=== PATIENT | female | born 2000 | race Two or more races ===

== ENCOUNTER 2020-08-22 17:02 | Emergency (ER) | payer OTHER ==
[2020-08-22 17:39] LABS: BASOPHILS % (AUTO) 0.4 %; EOSINOPHILS % (AUTO) 0.3 %; HCT - HEMATOCRIT 37.2 % (37.0-47.0); HGB - HEMOGLOBIN 12.2 g/dL (12.0-16.0); LYMPHOCYTES # (AUTO) 3.2 10^3/uL (1.5-3.5); LYMPHOCYTES % (AUTO) 31.1 %; MEAN CORPUSCULAR HEMOGLOBIN 30.7 pg (27.0-31.0); MEAN CORPUSCULAR HGB CONC 32.8 g/dL (32.0-36.0); MEAN CORPUSCULAR VOLUME 93.5 fL (81.0-99.0); MEAN PLATELET VOLUME 11.1 fL (7.9-10.8); MONOCYTES # (AUTO) 0.6 10^3/uL (0.0-1.0); MONOCYTES % (AUTO) 5.9 %; NEUTROPHILS # (AUTO) 6.3 10^3/uL (1.5-6.6); PLT - PLATELET COUNT 277 10^3/uL (130-450); RED BLOOD COUNT 3.98 10^6/uL (4.20-5.40); RED CELL DISTRIBUTION WIDTH 12.6 % (12.0-15.0); WHITE BLOOD COUNT 10.2 x10^3/uL (4.8-10.8)
[2020-08-22 17:51] LABS: ALBUMIN 4.9 g/dL (3.2-5.5); ALBUMIN/GLOBULIN RATIO 1.6 (1.0-2.2); BILIRUBIN,TOTAL 1.1 mg/dL (0.2-1.0); CALCIUM 9.6 mg/dL (8.5-10.3); CREATININE 0.8 mg/dL (0.4-1.0)
[2020-08-22 19:41] LABS: BILIRUBIN,URINE NEGATIVE (NEGATIVE); GLUCOSE, URINE (UA) NEGATIVE (NEGATIVE); KETONES,URINE (UA) NEGATIVE (NEGATIVE); LEUKOCYTE ESTERASE, URINE NEGATIVE (NEGATIVE); NITRITE,URINE NEGATIVE (NEGATIVE); OCCULT BLOOD,URINE NEGATIVE (NEGATIVE); PH,URINE 6.5 PH (5.0-7.5); PROTEIN,URINE NEGATIVE (NEGATIVE); UROBILINOGEN,URINE 0.2 (NORMAL) E.U./dL (NORMAL)
--- NOTE | 2020-08-22 19:42 | ED Physician Documentation ---
History of Present Illness - Stated complaint Stated Complaint: LOW ABD PX - Chief complaint Chief Complaint: Abd Pain - History obtained from History obtained from: Patient - Additonal information Additional information: Patient comes emergency department chief complaint of low abdominal cramping for the last week. She states that she thought she was going to start her period but that her period never started. Patient states that when she takes ibuprofen, the symptoms are relieved but when the ibuprofen wears off, they come back. Patient denies any other accompanying symptoms other than some nausea this morning. She states she vomited once. No dysuria. No fevers or chills. No back pain. No change in bowel habits. No blood in urine. No surgical history. Patient is quite sure she is not . No other complaints at this time Review of Systems Ten Systems: 10 systems reviewed and negative Constitutional: reports: Reviewed and negative Eyes: reports: Reviewed and negative Ears: reports: Reviewed and negative Nose: reports: Reviewed and negative Throat: reports: Reviewed and negative Cardiac: reports: Reviewed and negative Respiratory: reports: Reviewed and negative GI: reports: Abdominal Pain, Nausea, Vomiting : reports: Reviewed and negative Skin: reports: Reviewed and negative Musculoskeletal: reports: Reviewed and negative Neurologic: reports: Reviewed and negative Psychiatric: reports: Reviewed and negative Endocrine: reports: Reviewed and negative Immunocompromised: reports: Reviewed and negative PD PAST MEDICAL HISTORY - Allergies Allergies/Adverse Reactions: Allergies Allergy/AdvReac Type Severity Reaction Status Date / Time No Known Drug Allergies Allergy Verified 08/22/20 17:13 - Social History Does the pt smoke?: No Smoking Status: Never smoker PD ED PE NORMAL - Vitals Vital signs reviewed: Yes - General General: Alert and oriented X 3, No acute distress, Well developed/nourished - HEENT HEENT: Atraumatic, PERRL, EOMI, Moist mucous membranes - Neck Neck: Supple, no meningeal sign - Cardiac Cardiac: RRR, No murmur - Respiratory Respiratory: No respiratory distress, Clear bilaterally - Abdomen Abdomen: Soft, Non distended, Other (Mild suprapubic tenderness, no rebound or guarding.) - Back Back: No CVA TTP - Derm Derm: Normal color, Warm and dry, No rash - Extremities Extremities: No deformity, No edema, No calf tenderness / cord - Neuro Neuro: Alert and oriented X 3, lead manufacturing technician 2-12 intact, Normal speech, Other (The normal) - Psych Psych: Normal mood, Normal affect Results - Vitals Vitals: Vital Signs - 24 hr 08/22/20 08/22/20 08/22/20 17:13 19:17 21:00 Temperature 36.5 C Heart Rate 77 56 L 55 L Respiratory 16 18 19 Rate Blood Pressure 119/69 116/76 118/75 O2 Saturation 99 100 99 08/22/20 22:32 Temperature 36.6 C Heart Rate 56 L Respiratory 14 Rate Blood Pressure 104/67 O2 Saturation 100 Oxygen O2 Source Room air - Labs Labs: Laboratory Tests 08/22/20 08/22/20 08/22/20 17:28 17:31 17:31 WBC 10.2 RBC 3.98 L Hgb 12.2 Hct 37.2 MCV 93.5 MCH 30.7 MCHC 32.8 RDW 12.6 Plt Count 277 MPV 11.1 H Neut # (Auto) 6.3 Lymph # (Auto) 3.2 [place] # (Auto) 0.6 Eos # (Auto) 0.0 Baso # (Auto) 0.0 Absolute Nucleated RBC 0.00 Nucleated RBC % 0.0 Sodium 135 Potassium 4.0 Chloride 102 Carbon Dioxide 25 Anion Gap 8.0 BUN 17 Creatinine 0.8 Estimated GFR (MDRD) 91 Glucose 98 Calcium 9.6 Total Bilirubin 1.1 H AST 20 ALT 18 Alkaline Phosphatase 70 Total Protein 8.0 Albumin 4.9 Globulin 3.1 Albumin/Globulin Ratio 1.6 Lipase 30 Urine Color YELLOW Urine Clarity CLEAR Urine pH 6.5 Ur Specific [place] 1.020 Urine Protein NEGATIVE Urine Glucose (UA) NEGATIVE Urine Ketones NEGATIVE Urine Occult Blood NEGATIVE Urine Nitrite NEGATIVE Urine Bilirubin NEGATIVE Urine Urobilinogen 0.2 (NORMAL) Ur Leukocyte Esterase NEGATIVE Ur Microscopic Review NOT INDICATED Urine Culture Comments NOT INDICATED Urine HCG, Qual NEGATIVE - Rads (name of study) CT AP Radiology: Final report received, EMP read indepedently (neg) PD MEDICAL DECISION MAKING - ED course Complexity details: reviewed results, re-evaluated patient, considered differential, d/w patient ED course: The patient was worked up with labs, urinalysis, and urine test. She was treated symptomatically with a dose of ibuprofen. All work-up, including CT abdomen and pelvis was negative. I discussed the usual indications for return and follow-up. Departure - Departure Disposition: 01 Home, Self Care Clinical Impression: Abdominal pain Qualifiers: Abdominal location: lower abdomen, unspecified Qualified Code(s): R10.30 - Lower abdominal pain, unspecified Condition: Stable Instructions: ED Abdominal Pain Unkn Cause Comments: All of your tests look good. There is no evidence of an emergent condition causing your pain. Please take ibuprofen as needed. Follow-up with your primary doctor if you are not feeling better in 1 week. Discharge Date/Time: 08/22/20 22:33
[2020-08-22 19:43] LABS: CLARITY,URINE CLEAR (CLEAR); HCG UR QUAL NEGATIVE
[2020-08-22] MEDS: IBUPROFEN 800 MG TABLET PO STA (19:45)
[2020-08-22] MEDS ORDERED: IOVERSOL 320 100 ML VIAL IVP ONE (20:44)
[2020-08-22] MEDS: IOVERSOL 320 100 ML VIAL IVP ONE (21:01)
--- NOTE | 2020-08-22 21:56 | CT Report ---
PROCEDURE: Abdomen/Pelvis W INDICATIONS: low abd pain/vomiting x 1 week CONTRAST: IV CONTRAST: Optiray 320 ml: 100 PO CONTRAST: *NO PO CONTRAST TECHNIQUE: After the administration of weight appropriate dose of intravenous contrast, 5 mm thick sections acqu ired from the diaphragms to the symphysis. 5 mm thick coronal and sagittal reformats were acquired. For radiation dose reduction, the following was used: automated exposure control, adjustment of mA and/or kV according to patient size. COMPARISON: None. FINDINGS: Image quality: Excellent. ABDOMEN: Lung bases: Lung bases are clear. Heart size is normal. Solid organs: Liver and spleen are normal in size and enhancement. Gallbladder is unremarkable Brayan iary system is non dilated. Pancreas enhances normally. No adrenal nodules. Kidneys demonstrate no rmal size and enhancement, without hydronephrosis. Peritoneum and bowel: Bowel loops demonstrate normal wall thickness and caliber. No free fluid or a ir. Normal appendix. Nodes and vessels: No retroperitoneal or mesenteric adenopathy by size criteria. Aorta and inferior vena cava are normal in size. Miscellaneous: No ventral hernias. PELVIS: Genitourinary: Bladder wall thickness is normal. Miscellaneous: No inguinal hernias or adenopathy. Bones: No suspicious bony lesions. No acute vertebral body compression fractures. IMPRESSION: CT abdomen and pelvis without acute abnormalities. No evidence for bowel obstruction. No acute inflammatory changes. Normal appendix. Reviewed by: Perez Albarran MD on 08/22/2020 9:54 PM PDT Approved by: Perez Albarran MD on 08/22/2020 9:54 PM PDT Station ID: [id number]
[2020-08-22 22:34] VITALS: BP 104/67
== END 2020-08-22 22:33 | disposition home or self-care (01) ==
LOC: ED 17:02
DX: R10.30 Lower abdominal pain, unspecified (principal); R11.2 Nausea with vomiting, unspecified
CPT/HCPCS: 36415; 74177; 80053; 81003; 81025; 83690; 85025; 99282; 99284; A9270; Q9967; 81001; 87086

== ENCOUNTER 2021-12-19 07:32 | Emergency (ER) | payer OTHER ==
[2021-12-19] MEDS ORDERED: ONDANSETRON ODT 4 MG TABLET TL STA (07:44)
[2021-12-19 08:12] LABS: BASOPHILS % (AUTO) 0.5 %; EOSINOPHILS # (AUTO) 0.2 10^3/uL (0.0-0.7); EOSINOPHILS % (AUTO) 2.4 %; HCT - HEMATOCRIT 37.3 % (37.0-47.0); LYMPHOCYTES % (AUTO) 46.5 %; MEAN CORPUSCULAR HGB CONC 32.2 g/dL (32.0-36.0); MEAN CORPUSCULAR VOLUME 90.1 fL (81.0-99.0); MEAN PLATELET VOLUME 10.8 fL (7.9-10.8); MONOCYTES # (AUTO) 0.5 10^3/uL (0.0-1.0); MONOCYTES % (AUTO) 7.2 %; NEUTROPHILS # (AUTO) 2.8 10^3/uL (1.5-6.6); NEUTROPHILS % (AUTO) 43.2 %; PLT - PLATELET COUNT 289 10^3/uL (130-450); RED BLOOD COUNT 4.14 10^6/uL (4.20-5.40); RED CELL DISTRIBUTION WIDTH 13.7 % (12.0-15.0); WHITE BLOOD COUNT 6.4 x10^3/uL (4.8-10.8)
[2021-12-19 08:14] LABS: BILIRUBIN,URINE NEGATIVE (NEGATIVE); CLARITY,URINE CLEAR (CLEAR); GLUCOSE, URINE (UA) NEGATIVE (NEGATIVE); KETONES,URINE (UA) NEGATIVE (NEGATIVE); LEUKOCYTE ESTERASE, URINE NEGATIVE (NEGATIVE); NITRITE,URINE NEGATIVE (NEGATIVE); OCCULT BLOOD,URINE NEGATIVE (NEGATIVE); PROTEIN,URINE NEGATIVE (NEGATIVE); UROBILINOGEN,URINE 0.2 (NORMAL) E.U./dL (NORMAL)
[2021-12-19 08:15] LABS: HCG UR QUAL NEGATIVE
[2021-12-19 08:37] LABS: ALBUMIN 4.6 g/dL (3.2-5.5); ALBUMIN/GLOBULIN RATIO 1.4 (1.0-2.2); CALCIUM 9.3 mg/dL (8.5-10.3); CREATININE 0.6 mg/dL (0.4-1.0); POTASSIUM 4.1 mmol/L (3.5-5.0); TOTAL PROTEIN 7.9 g/dL (6.7-8.2)
[2021-12-19] MEDS ORDERED: iohexoL-300 100 ML VIAL ONE (09:58)
--- NOTE | 2021-12-19 12:15 | CT Report ---
PROCEDURE: ABDOMEN/PELVIS W INDICATIONS: periumbilical pain/nausea CONTRAST: 100ml Omnipaque 300 TECHNIQUE: After the administration of IV contrast, 5 mm thick sections acquired from the diaphragms to the symp hysis. 5 mm thick coronal and sagittal reformats were acquired. For radiation dose reduction, the f ollowing was used: automated exposure control, adjustment of mA and/or kV according to patient size. COMPARISON: 08/22/2020 FINDINGS: Image quality: Excellent. ABDOMEN: Lung bases: Lung bases are clear. Heart size is normal. Solid organs: Liver and spleen are normal in size and enhancement. Gallbladder is within normal foote its. Biliary system is non dilated. Pancreas enhances normally. No adrenal nodules. Kidneys demon strate normal size and enhancement, without hydronephrosis. Peritoneum and bowel: There is no bowel obstruction. Appendix is visualized in right lower quadrant a nd is within normal limits. Mild wall thickening and hyperemia involving multiple small bowel loops i n mid to right side of abdomen with mild fluid distention suggestive of low-grade enteritis. No absce ss collection. No colonic wall thickening. No free fluid or free air. Nodes and vessels: No retroperitoneal or mesenteric adenopathy by size criteria. Aorta and inferior vena cava are normal in size. Miscellaneous: No ventral hernias. PELVIS: Genitourinary: Bladder wall thickness is normal. Miscellaneous: No inguinal hernias or adenopathy. Bones: No suspicious bony lesions. No vertebral body compression fractures. IMPRESSION: 1. A few mildly thickened small bowel loops with fluid distention seen in mid to right side of abdome n suggestive of mild enteritis. 2. Normal appendix. No bowel obstruction or other area of abnormal bowel wall thickening. No free flu id or free air. Reviewed by: Stefano Wolf MD on 12/19/2021 12:14 PM PST Approved by: Stefano Wolf MD on 12/19/2021 12:14 PM PST Station ID: [id number]
--- NOTE | 2021-12-19 12:34 | ED Physician Documentation ---
PD HPI ABD PAIN - Stated complaint Stated Complaint: LOW ABD PX - Chief complaint Chief Complaint: Abd Pain - History obtained from History obtained from: Patient - Additional information Additional information: Patient is a 21-year-old female with no significant past medical history presenting for evaluation of periumbilical abdominal pain that is been present for 1 week with nausea. The pain does not radiate. Nothing makes it better or worse. She denies emesis or diarrhea. No fevers chills, body aches, chest pain or difficulty breathing. Denies concerns for . Denies pelvic pain, vaginal bleeding or discharge. Review of Systems Constitutional: denies: Fever Nose: denies: Congestion Cardiac: denies: Chest pain / pressure Respiratory: denies: Dyspnea GI: reports: Abdominal Pain, Nausea. denies: Vomiting : denies: Dysuria Musculoskeletal: denies: Back pain Neurologic: denies: Headache PD PAST MEDICAL HISTORY - Present Medications Home Medications: Ambulatory Orders Medication Instructions Recorded Confirmed Ondansetron Odt [Zofran] 4 mg TL Q6H PRN #10 tablet 12/19/21 - Allergies Allergies/Adverse Reactions: Allergies Allergy/AdvReac Type Severity Reaction Status Date / Time No Known Drug Allergies Allergy Verified 08/22/20 17:13 - Social History Does the pt smoke?: No Smoking Status: Never smoker PD ED PE NORMAL - General General: Alert and oriented X 3, No acute distress, Well developed/nourished - HEENT HEENT: Atraumatic, Moist mucous membranes - Neck Neck: Supple, no meningeal sign - Cardiac Cardiac: RRR, Strong equal pulses - Respiratory Respiratory: No respiratory distress, Clear bilaterally - Abdomen Abdomen: Normal bowel sounds, Soft, Non distended, Other (Periumbilical tendern ess, no lower abdominal tenderness to palpation, no rebound, no guarding) - Derm Derm: Warm and dry - Extremities Extremities: No edema - Neuro Neuro: Normal speech Results - Vitals Vitals: Vital Signs - 24 hr 12/19/21 12/19/21 12/19/21 07:43 11:24 12:47 Temperature 37.0 C 36.7 C Heart Rate 67 50 L 68 Respiratory 19 18 14 Rate Blood Pressure 123/64 104/57 L 98/61 O2 Saturation 100 98 100 Oxygen O2 Source Room air - Labs Labs: Laboratory Tests 12/19/21 12/19/21 12/19/21 08:00 08:08 08:08 WBC 6.4 RBC 4.14 L Hgb 12.0 Hct 37.3 MCV 90.1 MCH 29.0 MCHC 32.2 RDW 13.7 Plt Count 289 MPV 10.8 Neut # (Auto) 2.8 Lymph # (Auto) 3.0 [place] # (Auto) 0.5 Eos # (Auto) 0.2 Baso # (Auto) 0.0 Absolute Nucleated RBC 0.00 Nucleated RBC % 0.0 Sodium 137 Potassium 4.1 Chloride 103 Carbon Dioxide 27 Anion Gap 7.0 BUN 9 Creatinine 0.6 Estimated GFR (MDRD) 125 Glucose 88 Calcium 9.3 Total Bilirubin 1.0 AST 23 ALT 21 Alkaline Phosphatase 58 Total Protein 7.9 Albumin 4.6 Globulin 3.3 Albumin/Globulin Ratio 1.4 Lipase 39 Urine Color YELLOW Urine Clarity CLEAR Urine pH 7.0 Ur Specific [place] 1.015 Urine Protein NEGATIVE Urine Glucose (UA) NEGATIVE Urine Ketones NEGATIVE Urine Occult Blood NEGATIVE Urine Nitrite NEGATIVE Urine Bilirubin NEGATIVE Urine Urobilinogen 0.2 (NORMAL) Ur Leukocyte Esterase NEGATIVE Ur Microscopic Review NOT INDICATED Urine Culture Comments NOT INDICATED Urine HCG, Qual NEGATIVE PD MEDICAL DECISION MAKING - ED course Complexity details: reviewed results, re-evaluated patient ED course: Patient presenting for evaluation of 1 week of periumbilical abdominal pain. Vital signs are stable and labs are reassuring. No lower abdominal tenderness. CT scan with possible enteritis. Reviewed results with patient. She is well- hydrated. Discussed continuing supportive care as Well as concerning symptoms to return for. Departure - Departure Disposition: 01 Home, Self Care Clinical Impression: Abdominal pain Condition: Stable Instructions: ED Abdominal Pain Female Non-Specific Abdominal Pain Prescriptions: Ondansetron Odt [Zofran] 4 mg TL Q6H PRN #10 tablet PRN Reason: Nausea / Vomiting Comments: You were evaluated for abdominal pain. Your labs were normal. Your CT scan shows a mild amount of inflammation. I would start with a clear liquid diet and advance as tolerated today. I would continue with acetaminophen or ibuprofen as needed for pain. If you have any worsening symptoms please return to the ER. I have sent a prescription for nausea medications to [facility] in [place]. Forms: Activity restrictions Discharge Date/Time: 12/19/21 12:49
[2021-12-19 12:47] VITALS: BP 98/61
[2021-12-19] MEDS ORDERED: iohexoL-300 100 ML VIAL IVP ONE (18:17)
== END 2021-12-19 12:49 | disposition home or self-care (01) ==
LOC: ED 07:32
DX: R10.33 Periumbilical pain (principal); R11.0 Nausea
CPT/HCPCS: 36415; 74177; 80053; 81003; 81025; 83690; 85025; 99282; 99284; Q0162; Q9967; 81001; 87086

== ENCOUNTER 2022-04-01 20:21 | Emergency (ER) | payer OTHER ==
[2022-04-01 20:48] LABS: BILIRUBIN,URINE NEGATIVE (NEGATIVE); GLUCOSE, URINE (UA) NEGATIVE (NEGATIVE); KETONES,URINE (UA) TRACE mg/dL (NEGATIVE); LEUKOCYTE ESTERASE, URINE NEGATIVE (NEGATIVE); NITRITE,URINE NEGATIVE (NEGATIVE); OCCULT BLOOD,URINE TRACE-INTA (NEGATIVE); PROTEIN,URINE NEGATIVE (NEGATIVE); UROBILINOGEN,URINE 0.2 (NORMAL) E.U./dL (NORMAL)
[2022-04-01 20:58] LABS: CLARITY,URINE CLEAR (CLEAR)
[2022-04-01 20:59] LABS: BASOPHILS % (AUTO) 0.3 %; EOSINOPHILS % (AUTO) 0.1 %; HCT - HEMATOCRIT 36.8 % (37.0-47.0); HGB - HEMOGLOBIN 11.9 g/dL (12.0-16.0); LYMPHOCYTES # (AUTO) 1.2 10^3/uL (1.5-3.5); LYMPHOCYTES % (AUTO) 16.4 %; MEAN CORPUSCULAR HEMOGLOBIN 28.7 pg (27.0-31.0); MEAN CORPUSCULAR HGB CONC 32.3 g/dL (32.0-36.0); MEAN CORPUSCULAR VOLUME 88.7 fL (81.0-99.0); MEAN PLATELET VOLUME 10.3 fL (7.9-10.8); MONOCYTES # (AUTO) 0.4 10^3/uL (0.0-1.0); MONOCYTES % (AUTO) 5.5 %; NEUTROPHILS # (AUTO) 5.8 10^3/uL (1.5-6.6); NEUTROPHILS % (AUTO) 77.4 %; PLT - PLATELET COUNT 289 10^3/uL (130-450); RED BLOOD COUNT 4.15 10^6/uL (4.20-5.40); RED CELL DISTRIBUTION WIDTH 13.7 % (12.0-15.0); WHITE BLOOD COUNT 7.5 x10^3/uL (4.8-10.8)
[2022-04-01 21:06] LABS: ALBUMIN/GLOBULIN RATIO 1.1 (1.0-2.2); BILIRUBIN,TOTAL 1.1 mg/dL (0.2-1.0); CALCIUM 8.6 mg/dL (8.5-10.3); CREATININE 0.5 mg/dL (0.4-1.0); POTASSIUM 3.4 mmol/L (3.5-5.0); TOTAL PROTEIN 7.7 g/dL (6.7-8.2)
--- NOTE | 2022-04-01 21:31 | ED Physician Documentation ---
PD HPI NVD - Stated complaint Stated Complaint: N/V - Chief complaint Chief Complaint: Abd Pain - History obtained from History obtained from: Patient - History of Present Illness Timing - details: Gradual onset Recently seen: Clinic - Additonal information Additional information: patient c/o nausea, vomiting, fatigue since last night. intermittent/episodic dizziness. LMP was 02/14/22 and [place] test that resulted positive. Although her chief complaint is n/v, fatigue/weakness, she also notes (on ROS) suprapubic cramping, intermittent, for approximately the past week. Denies vaginal bleeding. This is her first . She has not yet had an US in this . Review of Systems Constitutional: denies: Fever GI: reports: Nausea, Vomiting. denies: Abdominal Pain (suprapubic cramping, but no abdominal pain per se), Constipation, Diarrhea : reports: Now EGA. denies: Dysuria PD PAST MEDICAL HISTORY - Past Medical History Past Medical History: No - Present Medications Home Medications: Ambulatory Orders Medication Instructions Recorded Confirmed Metoclopramide [Reglan] 10 mg PO Q6H PRN #14 tablet 04/02/22 - Allergies Allergies/Adverse Reactions: Allergies Allergy/AdvReac Type Severity Reaction Status Date / Time aspirin Allergy Hives Verified 04/01/22 20:27 - Social History Does the pt smoke?: No Smoking Status: Never smoker PD ED PE NORMAL - Vitals Vital signs reviewed: Yes - General General: Alert and oriented X 3, No acute distress, Well developed/nourished - HEENT HEENT: Pharynx benign, Other (tacky/pasty mucous membranes) - Neck Neck: Supple, no meningeal sign - Cardiac Cardiac: RRR, No murmur - Respiratory Respiratory: No respiratory distress, Clear bilaterally - Abdomen Abdomen: Normal bowel sounds, Soft, Non tender, Non distended - Back Back: No CVA TTP Results - Vitals Vitals: Oxygen O2 Source Room air - Labs Labs: Laboratory Tests 04/01/22 04/01/22 04/01/22 20:43 20:49 20:49 WBC 7.5 RBC 4.15 L Hgb 11.9 L Hct 36.8 L MCV 88.7 MCH 28.7 MCHC 32.3 RDW 13.7 Plt Count 289 MPV 10.3 Neut # (Auto) 5.8 Lymph # (Auto) 1.2 L [place] # (Auto) 0.4 Eos # (Auto) 0.0 Baso # (Auto) 0.0 Absolute Nucleated RBC 0.00 Nucleated RBC % 0.0 Sodium 131 L Potassium 3.4 L Chloride 98 L Carbon Dioxide 19 L Anion Gap 14.0 H BUN 6 Creatinine 0.5 Estimated GFR (MDRD) 153 Glucose 107 H Calcium 8.6 Total Bilirubin 1.1 H AST 23 ALT 31 Alkaline Phosphatase 56 Total Protein 7.7 Albumin 4.0 Globulin 3.7 Albumin/Globulin Ratio 1.1 Lipase 33 HCG, Quant Urine Color YELLOW Urine Clarity CLEAR Urine pH 7.0 Ur Specific [place] 1.015 Urine Protein NEGATIVE Urine Glucose (UA) NEGATIVE Urine Ketones TRACE Urine Occult Blood TRACE-INTA Urine Nitrite NEGATIVE Urine Bilirubin NEGATIVE Urine Urobilinogen 0.2 (NORMAL) Ur Leukocyte Esterase NEGATIVE Ur Microscopic Review NOT INDICATED Urine Culture Comments NOT INDICATED 04/01/22 20:49 WBC RBC Hgb Hct MCV MCH MCHC RDW Plt Count MPV Neut # (Auto) Lymph # (Auto) [place] # (Auto) Eos # (Auto) Baso # (Auto) Absolute Nucleated RBC Nucleated RBC % Sodium Potassium Chloride Carbon Dioxide Anion Gap BUN Creatinine Estimated GFR (MDRD) Glucose Calcium Total Bilirubin AST ALT Alkaline Phosphatase Total Protein Albumin Globulin Albumin/Globulin Ratio Lipase HCG, Quant 47909.00 Urine Color Urine Clarity Urine pH Ur Specific [place] Urine Protein Urine Glucose (UA) Urine Ketones Urine Occult Blood Urine Nitrite Urine Bilirubin Urine Urobilinogen Ur Leukocyte Esterase Ur Microscopic Review Urine Culture Comments - Rads (name of study) first trimester US Radiology: Prelim report reviewed, See rad report PD Medical Decision Making - ED course Complexity details: reviewed results, re-evaluated patient, considered differe ntial, d/w patient ED course: Mild abnormalities on blood tests without any concerning results (mild hyponatremia, Na 131; minimal hypokalemia, K 3.4). Serum HCG is over 32k. First trimester US shows IUP with gestational sac and yolk sac but no definite cardiac activity. Also small subchorionic bleeding on information systems director's interpretation. Patient is given 1 liter NS IV bolus and 4mg IV zofran and on reevaluation, she appears to be in NAD, reports feeling significant improvement, and has moist mucous membranes. I discussed results with patient. Further testing is not indicated on emergent basis at this time, but I emphasized the need for follow up with her knitter helper within the coming several days/week for reevaluation. I explained that it is likely the ultrasound was done tonight in a narrow window of seeing the structures visualized but before cardiac activity has started. I explained that follow-up testing (US, possibly repeat serum HCG) would help determine the situation. She is given a second dose of zofran prior to discharge for residual nausea, and rx for reglan sent to her pharmacy of choice. Departure - Departure Disposition: Home, Self Care Clinical Impression: Vomiting affecting Condition: Good Instructions: ED Preg Morning Sickness Prescriptions: Metoclopramide [Reglan] 10 mg PO Q6H PRN #14 tablet PRN Reason: Nausea / Vomiting Comments: There were no concerning or diagnostic findings on your blood test tonight. Your serum hCG (blood " level") was 31,079. I have included the results of this test in these discharge sheets because your doctor might want to repeat this test, depending on the situation, for comparative purposes. The ultrasound shows the very early stages of in your uterus. There is no evidence of an ectopic (tubal) on the ultrasound; this would have been a very concerning and potentially dangerous finding. At this time, there was no evidence of any heart movement on the ultrasound, but, as we discussed, this is most likely because the ultrasound was \\performed in a timeframe just before heart activity has developed. The radiologist who read the ultrasound is recommending repeat ultrasound in 7 to 10 days for reassessment; by that time, there should certainly be progression of the findings and development of heart movement. Forms: Activity restrictions Discharge Date/Time: 04/02/22 01:05
[2022-04-01] MEDS ORDERED: ONDANSETRON 4 MG/2 ML VIAL IVP STA (21:58)
[2022-04-01] MEDS ORDERED: SODIUM CHLORIDE 0.9% 1,000 ML IV STA (21:58)
--- NOTE | 2022-04-02 00:13 | Ultrasound Report ---
PROCEDURE: OB First Trimester INDICATIONS: suprapubic cramping, first trimester OUTSIDE/PRIOR DATING DATA: Last menstrual period (LMP): 02/14/2022. LMP-based estimated date of delivery (NOHEMY): 11/21/2022. First dating scan (date and location): This study. Estimated date of delivery (NOHEMY) from first dating scan: 11/25/2022. The below data below was generated using the above NOHEMY of 11/25/2022 TECHNIQUE: Real-time scanning was performed of the fetus and maternal pelvic organs, with image documentation. COMPARISON: None FINDINGS: Small intrauterine gestational sac present, a pole is present, but cardiac act ivity was not identifiable. Embryo: [place]-rump length 4 mm which correlates with a gestational age of 6 weeks 0 days. Heart rate: Not seen but potentially secondary to early gestational age. Measurement variability in dating: +/- 4 weeks by LMP, +/- 7 days by mean sac diameter (use before 6 weeks gestation if crown-rump length not able to be measured), +/- 5 days by crown-rump length (6-12 weeks gestation). Maternal organs: Ovaries normal considering gestational status. IMPRESSION: A definite viable intrauterine gestation is not yet established but a intrauterine gestational sac sampson s been established by presence of the small gestational sac with internal yolk sac. The absence of vi sualized cardiac activity may simply reflect early gestational age. Follow-up OB ultrasound in 7-10 days to confirm viability likely is warranted. Reviewed by: Jann Finnegan MD on 04/02/2022 12:12 AM PST Approved by: Jann Finnegan MD on 04/02/2022 12:12 AM PST Station ID: [id number]
[2022-04-02] MEDS ORDERED: ONDANSETRON 4 MG/2 ML VIAL IVP STA (00:43)
[2022-04-02 01:05] VITALS: BP 99/55
== END 2022-04-02 01:05 | disposition home or self-care (01) ==
LOC: ED 20:21
DX: O21.9 Vomiting of pregnancy, unspecified (principal)
CPT/HCPCS: 36415; 80053; 81001; 81003; 83690; 84702; 85025; 87086; 96361; 96374; 96376; 99284

== ENCOUNTER 2022-04-26 07:56 | Emergency (ER) | payer OTHER ==
--- NOTE | 2022-04-26 08:23 | ED Physician Documentation ---
PD HPI URI - Stated complaint Stated Complaint: CHILLS/VOMITING - Chief complaint Chief Complaint: Heent - History obtained from History obtained from: Patient - History of Present Illness Timing - onset: Yesterday Timing duration: Days (1) Timing details: Abrupt onset, Still present Associated symptoms: Fever, Chills, Nasal congestion, NVD (Patient's main concern is the vomiting and nausea leading to dehydration. She does have lightheadedness with standing. Still nausea. No abd pain nor vaginal bleeding.) Contributing factors: Other (she has been having some nausea and emesis at least once in morning the past few weeks related to . She is 9 weks EGA and had ultrasound in office showing IUP about 3 weeks ago.). No: Sick contact, Immunocompromised Similar symptoms before: Has not had sx before Recently seen: Clinic (3 weeks ago at [facility] for early and had u/S showing iuP.) Review of Systems Constitutional: reports: Fever (since yesterday), Chills, Myalgias Nose: reports: Rhinorrhea / runny nose Respiratory: denies: Cough GI: reports: Nausea, Vomiting. denies: Abdominal Pain, Diarrhea : denies: Dysuria Musculoskeletal: denies: Neck pain Neurologic: reports: Generalized weakness. denies: Syncope, Altered mental status, Headache PD PAST MEDICAL HISTORY - Past Medical History Cardiovascular: None Respiratory: None Endocrine/Autoimmune: None - Present Medications Home Medications: Ambulatory Orders Medication Instructions Recorded Confirmed Acetaminophen [Acetaminophen Extra 500 mg PO QID PRN #50 tablet 04/26/22 Strength] Doxylamine Succinate [Unisom] 25 mg PO Q8H PRN #30 tablet 04/26/22 Ondansetron Odt [Zofran] 4 mg TL Q6H PRN #20 tablet 04/26/22 Vit No.180/Iron/Folic 1 each PO DAILY 30 Days #30 tablet 04/26/22 [ Plus Vitamin-Mineral] Pyridoxine [Vitamin B-6] 100 mg PO BID #40 tablet 04/26/22 - Allergies Allergies/Adverse Reactions: Allergies Allergy/AdvReac Type Severity Reaction Status Date / Time aspirin Allergy Hives Verified 04/26/22 08:18 - Social History Does the pt smoke?: No Smoking Status: Never smoker PD ED PE NORMAL - Vitals Vital signs reviewed: Yes - General General: Alert and oriented X 3, Well developed/nourished - HEENT HEENT: Ears normal, Pharynx benign. No: Moist mucous membranes - Neck Neck: Supple, no meningeal sign, No adenopathy - Cardiac Cardiac: RRR, No murmur - Respiratory Respiratory: Clear bilaterally - Abdomen Abdomen: Soft, Non tender - Derm Derm: Normal color, Warm and dry - Extremities Extremities: No edema, No calf tenderness / cord - Neuro Neuro: Alert and oriented X 3, No motor deficit, Normal speech Results - Vitals Vitals: Vital Signs - 24 hr 04/26/22 04/26/22 08:14 12:19 Temperature 36.5 C 36.7 C Heart Rate 80 75 Respiratory 16 16 Rate Blood Pressure 116/69 117/64 O2 Saturation 100 98 Oxygen O2 Source Room air - Labs Labs: Laboratory Tests 04/26/22 04/26/22 08:50 08:50 Urine Color YELLOW Urine Clarity CLEAR Urine pH 7.0 Ur Specific [place] 1.020 Urine Protein NEGATIVE Urine Glucose (UA) NEGATIVE Urine Ketones NEGATIVE Urine Occult Blood NEGATIVE Urine Nitrite NEGATIVE Urine Bilirubin NEGATIVE Urine Urobilinogen 0.2 (NORMAL) Ur Leukocyte Esterase NEGATIVE Ur Microscopic Review NOT INDICATED Urine Culture Comments NOT INDICATED Nasal Adenovirus (PCR) NOT DETECTED Nasal B. parapertussis DNA (PCR) NOT DETECTED Nasal Coronavir 229E PCR NOT DETECTED Nasal Coronavir HKU1 PCR NOT DETECTED Nasal Coronavir NL63 PCR DETECTED A Nasal Coronavir OC43 PCR NOT DETECTED Nasal Enterovir/Rhinovir PCR NOT DETECTED Nasal Influenza B PCR NOT DETECTED Nasal Influenza A PCR NOT DETECTED Nasal Parainfluen 1 PCR NOT DETECTED Nasal Parainfluen 2 PCR NOT DETECTED Nasal Parainfluen 3 PCR NOT DETECTED Nasal Parainfluen 4 PCR NOT DETECTED Nasal RSV (PCR) NOT DETECTED Nasal B.pertussis DNA PCR NOT DETECTED Nasal C.pneumoniae (PCR) NOT DETECTED Sury Human Metapneumo PCR NOT DETECTED Nasal M.pneumoniae (PCR) NOT DETECTED Nasal SARS-CoV-2 (PCR) NOT DETECTED PD Medical Decision Making - ED course Complexity details: re-evaluated patient (somewhat less nausea with Zofran but still feels ill with attempting pO intake. Discussed with patient and shared decision to add IV with fluids and meds at this point since PO ZOfran not effective enought. ), considered differential (has had morning sickness for few weeks related to and now with seeming viral illness with vomiting fevers, aches, congesiton. Can try Zofran and see if improves enought. ), d/w patient Procedural Risk Factors Specific to Patient: She has had U/S already with this showing IUP and does not have abd pain nor vaginal bleeding, so I did not see need for related imaging. I did want to eval particular viruses on PCR as cOVID in particular would bw more threatening to the and would consider paxlovid/other meds for her if that were the virus. Ended up being a different virus. ED course: She felt much better with IV fludis and Zofran that route. Able to take fluids orally now witohout nausea feeling. Feels less generally weak. Can prescirbe her meds for current viral illness/vomiting, but also start usual meds for to help with ongoing hyperemesis. Departure - Departure Disposition: 01 Home, Self Care Clinical Impression: Viral illness Qualifiers: Weeks of gestation: 9 weeks Qualified Code(s): Z3A.09 - 9 weeks gestation of Nausea and vomiting Qualifiers: Vomiting type: unspecified Qualified Code(s): R11.2 - Nausea with vomiting, unspecified Condition: Stable Record reviewed to determine appropriate education?: Yes Instructions: ED Upper Resp Infec No Abx Tx, ED Nausea Vomiting Follow-Up: [facility] [Provider Group] Prescriptions: Acetaminophen [Acetaminophen Extra Strength] 500 mg PO QID PRN #50 tablet PRN Reason: Pain Vit No.180/Iron/Folic [ Plus Vitamin-Mineral] 1 each PO DAILY 30 Days #30 tablet Doxylamine Succinate [Unisom] 25 mg PO Q8H PRN #30 tablet PRN Reason: Nausea / Vomiting Pyridoxine [Vitamin B-6] 100 mg PO BID #40 tablet Ondansetron Odt [Zofran] 4 mg TL Q6H PRN #20 tablet PRN Reason: Nausea / Vomiting Comments: You do have a viral illness according to your nasal swab test. It is a non- COVID coronavirus which is a typical head cold. This would account for some of the increased nausea as well as chills and aches and not feeling well. This will likely be 4 to 5 days of illness and even up to 7 to 10 days for back to normal. We can prescribe you some medication to help with nausea both related to and the illness. Vitamin B6 twice daily regularly helps reduce the nausea of (morning sickness). To that you can add ondansetron/Zofran every 6 hours if needed and add doxylamine if needed still for nausea. Stay well-hydrated. You can use Tylenol or ibuprofen during at this point. Typically no ibuprofen after 20 weeks gestation. However if your stomach is upset, the ibuprofen can be a little irritating anyway so I would suggest more Tylenol for fevers or pains. After you are feeling better in the next couple of days with less nausea and vomiting, it would be good to start a vitamin daily as well. I wrote a prescription for a months worth of this though likely your primary care had sent a prescription as well. I sent the current medications to [facility] pharmacy. Small frequent fluids and bland food today and tomorrow. Off work today in the next couple of days at least due to the illness. Forms: Activity restrictions Discharge Date/Time: 04/26/22 12:21
[2022-04-26] MEDS ORDERED: ONDANSETRON ODT 4 MG TABLET TL STA (08:38)
[2022-04-26 09:04] LABS: BILIRUBIN,URINE NEGATIVE (NEGATIVE); GLUCOSE, URINE (UA) NEGATIVE (NEGATIVE); KETONES,URINE (UA) NEGATIVE (NEGATIVE); LEUKOCYTE ESTERASE, URINE NEGATIVE (NEGATIVE); NITRITE,URINE NEGATIVE (NEGATIVE); OCCULT BLOOD,URINE NEGATIVE (NEGATIVE); PROTEIN,URINE NEGATIVE (NEGATIVE); UROBILINOGEN,URINE 0.2 (NORMAL) E.U./dL (NORMAL)
[2022-04-26 09:05] LABS: CLARITY,URINE CLEAR (CLEAR)
[2022-04-26] MEDS ORDERED: ACETAMINOPHEN 325 MG TABLET PO STA (09:11)
[2022-04-26 09:54] LABS: B. PARAPERTUSSIS- RESP PCR PAN NOT DETECTED; B. PERTUSSIS- RESP PCR PANEL NOT DETECTED; C. PNEUMONIAE- RESP PCR PANEL NOT DETECTED; CORONAVIRUS 229E-RESP PCR NOT DETECTED; CORONAVIRUS HKU1-RESP PCR NOT DETECTED; CORONAVIRUS NL63-RESP PCR DETECTED; CORONAVIRUS OC43-RESP PCR NOT DETECTED; HUMAN METAPNEUMOVIRUS NOT DETECTED; INFLUENZA A- RESP PCR PANEL NOT DETECTED; INFLUENZA B - RESP PCR PANEL NOT DETECTED; M. PNEUMONIAE- RESP PCR PANEL NOT DETECTED; PARAINFLUENZA VIRUS 1 NOT DETECTED; PARAINFLUENZA VIRUS 2 NOT DETECTED; PARAINFLUENZA VIRUS 3 NOT DETECTED; PARAINFLUENZA VIRUS 4 NOT DETECTED; RHINOVIRUS/ENTEROVIRUS NOT DETECTED; RSV- RESP PCR PANEL NOT DETECTED; SARS-CoV-2 -RESP PCR PANEL NOT DETECTED
[2022-04-26] MEDS ORDERED: SODIUM CHLORIDE 0.9% 1,000 ML IV STA (10:23)
[2022-04-26] MEDS ORDERED: ONDANSETRON 4 MG/2 ML VIAL IVP STA (10:23)
[2022-04-26] MEDS: KETOROLAC 15 MG/ML VIAL IVP STA ×2 (10:53→10:54)
[2022-04-26 12:20] VITALS: BP 117/64
== END 2022-04-26 12:21 | disposition home or self-care (01) ==
LOC: ED 07:56
DX: O98.511 Other viral diseases complicating pregnancy, first trimester (principal); B33.8 Other specified viral diseases; Z3A.09 9 weeks gestation of pregnancy; Z20.822 Contact with and (suspected) exposure to COVID-19
CPT/HCPCS: 81003; 87633; 96374; 99283; 99284; A9270; Q0162; 81001; 87086

== ENCOUNTER 2022-05-01 14:02 | Outpatient (CLI) | payer OTHER ==
--- NOTE | 2022-05-03 14:29 | Ultrasound Report ---
PROCEDURE: OB First Trimester w/TV INDICATIONS: POSITIVE TEST OUTSIDE/PRIOR DATING DATA: Last menstrual period (LMP): 02/14/2022. LMP-based estimated date of delivery (NOHEMY): 11/21/2022. First dating scan (date and location): 04/01/2022. Estimated date of delivery (NOHEMY) from first dating scan: 11/25/2022. The below data below was generated using the ultrasound NOHEMY of 11/25/2022 TECHNIQUE: Real-time scanning was performed of the fetus and maternal pelvic organs, with image documentation. Endovaginal scanning was also performed to better visualize the fetus and maternal ovaries. COMPARISON: OB ultrasound 04/01/2022 FINDINGS: Embryo: Intrauterine gestational sac is again seen with pole. [place]-rump length is 3.5 cm, com patible with estimated gestational age of 10 weeks 3 days. Estimated gestational age from initial ult rasound would be 10 weeks 4 days. Small perigestational sac hemorrhage at the fundus measures 1.2 x 1 .2 x 1.0 cm. Heart rate: 164 bpm Measurement variability in dating: +/- 4 weeks by LMP, +/- 7 days by mean sac diameter (use before 6 weeks gestation if crown-rump length not able to be measured), +/- 5 days by crown-rump length (6-12 weeks gestation). Maternal organs: A right ovarian cyst is seen measuring 4.2 x 3.4 x 3.9 cm. IMPRESSION: 1.Single live intrauterine with appropriate interval growth. 2.Small perigestational sac hemorrhage is seen measuring up to 1.2 cm. 3.Right ovarian cyst has mildly decreased in size, now measuring 4.2 cm, compared to 5.2 cm on 023. Reviewed by: Lebron Pettit MD on 05/03/2022 2:28 PM PDT Approved by: Lebron Pettit MD on 05/03/2022 2:28 PM PDT Station ID: [id number]
== END 2022-05-01 14:03 | disposition home or self-care (01) ==
LOC: DI 14:02
PROVIDERS: ATTEND Obstetrics & Gynecology
DX: O20.8 Other hemorrhage in early pregnancy (principal); O34.81 Maternal care for other abnormalities of pelvic organs, first trimester; N83.201 Unspecified ovarian cyst, right side; Z3A.10 10 weeks gestation of pregnancy

== ENCOUNTER 2022-05-14 16:52 | Outpatient (CLI) | payer OTHER | END 2022-05-14 16:53 | disposition other institution (70) | LOC: EMS 16:52 | DX: O99.891 Other specified diseases and conditions complicating pregnancy (principal); R45.851 Suicidal ideations; Z3A.10 10 weeks gestation of pregnancy | CPT/HCPCS: A0425; A0429 ==

== ENCOUNTER 2022-05-14 17:13 | Emergency (ER) | payer OTHER ==
[2022-05-14 17:23] VITALS: BP 109/66
[2022-05-14 17:33] LABS: BASOPHILS % (AUTO) 0.4 %; EOSINOPHILS # (AUTO) 0.2 10^3/uL (0.0-0.7); EOSINOPHILS % (AUTO) 1.6 %; HCT - HEMATOCRIT 33.3 % (37.0-47.0); HGB - HEMOGLOBIN 11.3 g/dL (12.0-16.0); LYMPHOCYTES # (AUTO) 2.9 10^3/uL (1.5-3.5); LYMPHOCYTES % (AUTO) 29.6 %; MEAN CORPUSCULAR HGB CONC 33.9 g/dL (32.0-36.0); MEAN CORPUSCULAR VOLUME 88.3 fL (81.0-99.0); MEAN PLATELET VOLUME 10.8 fL (7.9-10.8); MONOCYTES # (AUTO) 0.5 10^3/uL (0.0-1.0); NEUTROPHILS # (AUTO) 6.2 10^3/uL (1.5-6.6); NEUTROPHILS % (AUTO) 63.2 %; PLT - PLATELET COUNT 262 10^3/uL (130-450); RED BLOOD COUNT 3.77 10^6/uL (4.20-5.40); RED CELL DISTRIBUTION WIDTH 13.9 % (12.0-15.0); WHITE BLOOD COUNT 9.8 x10^3/uL (4.8-10.8)
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
[2022-05-14 17:47] LABS: ACETAMINOPHEN < 10 ug/mL (10-30); ALBUMIN 3.8 g/dL (3.2-5.5); ALBUMIN/GLOBULIN RATIO 1.1 (1.0-2.2); ALKALINE PHOSPHATASE 52 IU/L (42-121); ALT ALANINE AMINOTRANSFERASE 31 IU/L (10-60); AST ASPARTATE AMINOTRANSFERASE 21 IU/L (10-42); BILIRUBIN,TOTAL 0.5 mg/dL (0.2-1.0); BUN - BLOOD UREA NITROGEN 5 mg/dL (6-20); CALCIUM 8.7 mg/dL (8.5-10.3); CARBON DIOXIDE - CO2 21 mmol/L (21-32); CHLORIDE 106 mmol/L (101-111); CREATININE 0.4 mg/dL (0.4-1.0); ETOH - ETHANOL < 5.0 mg/dL; GFR - MDRD 198 (>89); GLUCOSE 93 mg/dL (70-100); LIPASE 42 U/L (22-51); POTASSIUM 3.4 mmol/L (3.5-5.0); SALICYLATE < 6.0 mg/dL; SODIUM 136 mmol/L (135-145); TOTAL PROTEIN 7.2 g/dL (6.7-8.2)
[2022-05-14 18:07] LABS: MUDS CUTOFF CONCENTRATIONS CUTOFF CONC BELOW:
[2022-05-14 18:13] LABS: BILIRUBIN,URINE NEGATIVE (NEGATIVE); GLUCOSE, URINE (UA) NEGATIVE (NEGATIVE); KETONES,URINE (UA) NEGATIVE (NEGATIVE); LEUKOCYTE ESTERASE, URINE SMALL (NEGATIVE); NITRITE,URINE NEGATIVE (NEGATIVE); OCCULT BLOOD,URINE NEGATIVE (NEGATIVE); PROTEIN,URINE NEGATIVE (NEGATIVE); UROBILINOGEN,URINE 0.2 (NORMAL) E.U./dL (NORMAL)
[2022-05-14 18:16] LABS: CLARITY,URINE HAZY (CLEAR); HCG UR QUAL POSITIVE
[2022-05-14 18:26] LABS: AMORPHOUS SEDIMENT,UR Few /LPF; AMPHETAMINE SCREEN,URINE NEGATIVE (NEGATIVE); BACTERIA,URINE Many /HPF (None Seen); BARBITURATE SCREEN,UR NEGATIVE (NEGATIVE); BENZODIAZEPINES SCREEN, URINE NEGATIVE (NEGATIVE); COCAINE SCREEN URINE NEGATIVE (NEGATIVE); METHADONE SCREEN, URINE NEGATIVE (NEGATIVE); METHAMPHETAMINES SCREEN, URINE NEGATIVE (NEGATIVE); OPIATE SCREEN, URINE NEGATIVE (NEGATIVE); OXYCODONE SCREEN, URINE NEGATIVE (NEGATIVE); PROPOXYPHENE SCREEN, URINE NEGATIVE (NEGATIVE); RBC,URINE 0-5 /HPF (0-5); SQUAMOUS EPITHELIAL CELL,UR MANY Squamous (<= Few); THC CANNABINOID SCREEN, URINE NEGATIVE (NEGATIVE); TRICYCLIC ANTIDEPRESSANT,URINE NEGATIVE (NEGATIVE)
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
[2022-05-14 21:23] LABS: B. PARAPERTUSSIS- RESP PCR PAN NOT DETECTED; B. PERTUSSIS- RESP PCR PANEL NOT DETECTED; C. PNEUMONIAE- RESP PCR PANEL NOT DETECTED; CORONAVIRUS 229E-RESP PCR NOT DETECTED; CORONAVIRUS HKU1-RESP PCR NOT DETECTED; CORONAVIRUS NL63-RESP PCR NOT DETECTED; CORONAVIRUS OC43-RESP PCR NOT DETECTED; HUMAN METAPNEUMOVIRUS NOT DETECTED; INFLUENZA A- RESP PCR PANEL NOT DETECTED; INFLUENZA B - RESP PCR PANEL NOT DETECTED; M. PNEUMONIAE- RESP PCR PANEL NOT DETECTED; PARAINFLUENZA VIRUS 1 NOT DETECTED; PARAINFLUENZA VIRUS 2 NOT DETECTED; PARAINFLUENZA VIRUS 3 NOT DETECTED; PARAINFLUENZA VIRUS 4 NOT DETECTED; RHINOVIRUS/ENTEROVIRUS NOT DETECTED; RSV- RESP PCR PANEL NOT DETECTED; SARS-CoV-2 -RESP PCR PANEL NOT DETECTED
== END 2022-05-15 00:25 ==
LOC: EDUNIT# → ED 17:13
DX: O99.891 Other specified diseases and conditions complicating pregnancy (principal); R45.851 Suicidal ideations; O99.341 Other mental disorders complicating pregnancy, first trimester; F33.9 Major depressive disorder, recurrent, unspecified; Z3A.10 10 weeks gestation of pregnancy; Z20.822 Contact with and (suspected) exposure to COVID-19
CPT/HCPCS: 36415; 80053; 80306; 80307; 80320; 80329; 81001; 81025; 83690; 84443; 85025; 87633; 99284; 99285; Q3014; 81003; 87086

== ENCOUNTER 2022-05-22 08:00 | Outpatient (CLI) | payer OTHER ==
[2022-05-24 00:19] LABS: CHLAMYDIA TRACHOMATIS DNA NEGATIVE (NEGATIVE); NEISSERIA GONORRHOEAE DNA NEGATIVE (NEGATIVE); TRICHOMONAS VAGINALIS DNA NEGATIVE (NEGATIVE)
== END 2022-05-22 23:59 | disposition home or self-care (01) ==
LOC: LAB.WC 08:00
PROVIDERS: ATTEND Nurse Practitioner
DX: Z11.3 Encounter for screening for infections with a predominantly sexual mode of transmission (principal)
CPT/HCPCS: 87491; 87591; 87661

== ENCOUNTER 2022-05-22 14:11 | Outpatient (CLI) | payer OTHER ==
[2022-05-22 14:37] LABS: BASOPHILS % (AUTO) 0.2 %; EOSINOPHILS # (AUTO) 0.2 10^3/uL (0.0-0.7); EOSINOPHILS % (AUTO) 1.6 %; HCT - HEMATOCRIT 34.9 % (37.0-47.0); HGB - HEMOGLOBIN 11.8 g/dL (12.0-16.0); LYMPHOCYTES # (AUTO) 2.5 10^3/uL (1.5-3.5); LYMPHOCYTES % (AUTO) 26.7 %; MEAN CORPUSCULAR HEMOGLOBIN 29.9 pg (27.0-31.0); MEAN CORPUSCULAR HGB CONC 33.8 g/dL (32.0-36.0); MEAN CORPUSCULAR VOLUME 88.4 fL (81.0-99.0); MEAN PLATELET VOLUME 11.1 fL (7.9-10.8); MONOCYTES # (AUTO) 0.5 10^3/uL (0.0-1.0); MONOCYTES % (AUTO) 5.4 %; NEUTROPHILS # (AUTO) 6.2 10^3/uL (1.5-6.6); NEUTROPHILS % (AUTO) 65.8 %; PLT - PLATELET COUNT 249 10^3/uL (130-450); RED BLOOD COUNT 3.95 10^6/uL (4.20-5.40); WHITE BLOOD COUNT 9.5 x10^3/uL (4.8-10.8)
[2022-05-23 04:09] LABS: RPR Non Reactive (Non Reactive)
[2022-05-23 05:12] LABS: HBsAG SCREEN Negative (Negative); HCV AB Non Reactive (Non Reactive)
[2022-05-23 07:10] LABS: HIV SCREEN 4TH GENERATION Non Reactive (Non Reactive)
[2022-05-23 11:10] LABS: VARICELLA-ZOSTER AB IGG <135 index (Immune >165)
== END 2022-05-22 14:12 | disposition home or self-care (01) ==
LOC: LAB 14:11
PROVIDERS: ATTEND Obstetrics & Gynecology
DX: Z36.89 Encounter for other specified antenatal screening (principal)
CPT/HCPCS: 36415; 85025; 86592; 86762; 86787; 86803; 86850; 86900; 86901; 87340; 87389

== ENCOUNTER 2022-06-02 23:39 | Emergency (ER) | payer OTHER ==
[2022-06-02 23:48] VITALS: BP 110/61
[2022-06-03] MEDS ORDERED: ONDANSETRON ODT 4 MG TABLET TL STA (00:12)
[2022-06-03] MEDS ORDERED: LIDOCAINE VISCOUS 2% 15 ML UDC MM STA (00:12)
[2022-06-03] MEDS ORDERED: MAG HYDROX/AL HYDROX/SIMETH 30 ML UDC PO STA (00:12)
--- NOTE | 2022-06-03 00:26 | ED Physician Documentation ---
PD HPI HEENT - Stated complaint Stated Complaint: THROAT SWOLLEN,V - Chief complaint Chief Complaint: Heent - History obtained from History obtained from: Patient - Additional information Additional information: The patient comes to the emergency department chief complaint of "I think I damaged my throat". The patient is and has had some nausea associated with this, and states that she ate a burger for lunch earlier today. The patient felt nauseated throughout the afternoon and took a Zofran, but about an hour prior to presenting to the emergency department, she vomited the contents o f her lunch. The patient states that she had episodes of pain in her throat after the vomiting and thought she might of seen a little bit of blood, Though it was hard to tell because there was [place] with the [place] also. She denies coughing or vomiting any further blood since. The patient denies any difficulty breathing. She states she has been able to swallow her saliva and water but that it hurts when she swallows. She states that he does not know if a piece of burger got stuck in her throat or why it is feeling this way. No other complaints at this time. PD PAST MEDICAL HISTORY - Past Medical History Past Medical History: No Cardiovascular: None Respiratory: None Endocrine/Autoimmune: None - Past Surgical History Past Surgical History: No - Present Medications Home Medications: Ambulatory Orders Medication Instructions Recorded Confirmed Acetaminophen [Acetaminophen Extra 500 mg PO QID PRN #50 tablet 04/26/22 Strength] Doxylamine Succinate [Unisom] 25 mg PO Q8H PRN #30 tablet 04/26/22 06/02/22 Ondansetron Odt [Zofran] 4 mg TL Q6H PRN #20 tablet 04/26/22 06/02/22 Vit No.180/Iron/Folic 1 each PO DAILY 30 Days #30 tablet 04/26/22 06/02/22 [ Plus Vitamin-Mineral] - Allergies Allergies/Adverse Reactions: Allergies Allergy/AdvReac Type Severity Reaction Status Date / Time aspirin Allergy Hives Verified 04/26/22 08:18 - Social History Does the pt smoke?: No Smoking Status: Never smoker Does the pt drink ETOH?: No Does the pt have substance abuse?: No - Immunizations Immunizations are current?: Yes PD ED PE NORMAL - Vitals Vital signs reviewed: Yes - General General: Alert and oriented X 3, No acute distress, Well developed/nourished - HEENT HEENT: Atraumatic, PERRL, EOMI, Moist mucous membranes - Neck Neck: Supple, no meningeal sign - Cardiac Cardiac: RRR, No murmur, Strong equal pulses - Respiratory Respiratory: No respiratory distress, Clear bilaterally - Abdomen Abdomen: Soft, Non tender, Non distended - Derm Derm: Normal color, Warm and dry, No rash - Extremities Extremities: No deformity - Neuro Neuro: Alert and oriented X 3 - Psych Psych: Normal mood, Normal affect Results - Vitals Vitals: Vital Signs - 24 hr 06/02/22 23:43 Temperature 36.9 C Heart Rate 76 Respiratory 15 Rate Blood Pressure 110/61 O2 Saturation 98 Oxygen O2 Source Room air PD Medical Decision Making - ED course Complexity details: considered differential, d/w patient ED course: The patient was in no respiratory distress, had no stridor and was not having any trouble controlling her secretions whatsoever. I discussed with her that I think it is unlikely that she has anything stuck in her throat, there, it is more likely that she has some irritation of the throat and may be a little muscle spasm. I have given her GI cocktail and Zofran and she is feeling little better. She is stable for discharge home. We have discussed home management of the symptoms as well as the usual indications for return. Departure - Departure Disposition: 01 Home, Self Care Clinical Impression: Globus pharyngeus, Vomiting affecting Condition: Stable Instructions: ED Preg Morning Sickness Comments: There is no evidence of a serious injury to your throat. It is not uncommon after repeated vomiting to have a sensation of fullness, spasm, pain or retained solid material in the throat. Most likely, this is caused by irritated nerves and some degree of muscle spasm. You are not coughing or vomiting up any blood and you are able to swallow without any evidence of obstruction. Sometimes vomiting can cause a small amount of bleeding because it "roughed up" the mucous membranes lining the throat. This bleeding is not serious and the minor roughage will heal on its own. You may use Maalox or another soothing agent to help if your throat is sore. You may also drink tea with honey to help soothe t he area, as well. It should be feeling better on its own in the next day or two. Forms: Activity restrictions Discharge Date/Time: 06/03/22 00:31
== END 2022-06-03 00:31 | disposition home or self-care (01) ==
LOC: ED 23:39
DX: O21.9 Vomiting of pregnancy, unspecified (principal); O99.891 Other specified diseases and conditions complicating pregnancy; F45.8 Other somatoform disorders; Z3A.00 Weeks of gestation of pregnancy not specified
CPT/HCPCS: 99283; A9270; Q0162

== ENCOUNTER 2022-06-13 12:21 | Outpatient (CLI) | payer OTHER ==
[2022-06-15 20:07] LABS: AFP MOM 1.17 (.); AFP VALUE 44.9 ng/mL (.); DIA MOM 1.34 (.); DIA VALUE 195.23 pg/mL (.); DSR (BY AGE) 1 IN 1081 (.); DSR (SECOND TRIMESTER) 1 IN 4515 (.); GEST. AGE ON COLLECTION DATE 17.1 WEEKS (.); HCG MOM 0.73 (.); HCG VALUE 23594 mIU/mL (.); INSULIN DEP DIABETES No (.); MATERNAL AGE AT EDD 23.7 yr (.); MULTIPLE GESTATION No (.); OPEN SPINA BIFIDA RISK 1 IN 7137 (.); RACE Other (.); RESULTS Report (.); TEST RESULTS *Screen Negative* (.); TRISOMY 18 RISK Not increased (.); UE3 MOM 0.77 (.); WEIGHT 160 lbs (.)
== END 2022-06-13 12:22 | disposition home or self-care (01) ==
LOC: LAB 12:21
PROVIDERS: ATTEND Nurse Practitioner
DX: Z34.90 Encounter for supervision of normal pregnancy, unspecified, unspecified trimester (principal); Z36.89 Encounter for other specified antenatal screening
CPT/HCPCS: 36415; 81511

== ENCOUNTER 2022-07-03 17:21 | Outpatient (CLI) | payer OTHER ==
--- NOTE | 2022-07-03 17:46 | PROVIDER PROGRESS NOTE ---
- HPI Chief Complaint: Pain, non-labor - Plan Plan: Patient is a 1-yfow-ghh-year-old G1, P0 at 20 weeks 0 days gestation presenting to triage for abdominal pain. This has been going on for approximately 1 week. Some pain suprapubic pain with occasional dysuria. Pain with passing gas. Right mid back pain. Wonders if spicy food can worsen symptoms. Constipation ongoing, but mildly improved. Daily, but still strains. Desires half-day chit to limit duty hours. Past medical history HSV-2 Anxiety Depression Past surgical history Denies previous surgeries Family history Mother: Leg cancer Brother: Psychiatric care Sister: Depression Aunt: Bipolar disorder Social history Denies tobacco, alcohol, drugs Physical Exam Constitutional: alert, no acute distress, well hydrated, well developed, well nourished, appropriate dress. Cardiovascular: Regular rate and rhythm. Respiratory: no respiratory distress. Abdomen: Soft, mild tenderness in the suprapubic area. No rebound tenderness. Back: Mild right-sided paraspinal tenderness. No CVA tenderness bilaterally. Psych: affect and mood appropriate, normal interaction, good eye contact. FHT: 140 [place]: Quiescent SVE: Declined cervical exam UA:With a moderate mount of bacteria and a few squamous cells. Sample recollected and submitted for culture Assessment and plan 22-year-old G1, P0 at 20 weeks 0 days gestation with abdominal pain. 1. Abdominal pain -Regulates her bowel habits as this is somewhat colicky and not always in the same spot. Encouraged her to start a stool softener twice daily until regular bowel movements without straining. Prescription sent for patient. 2. Constipation -For the last several days has mild improvement in this. Stool softener as above. 3. Dysuria -UA with moderate bacteria, resent new sample for culture. -Prescription sent to pharmacy 4. 20 weeks gestation -Anatomy scan tomorrow. 5. Discomforts of -Patient asked for half day work chit. Gave her a note for activity for the next 3 days. Should follow-up in clinic this worsens.
[2022-07-03 17:50] VITALS: BP 115/67
[2022-07-03] MEDS ORDERED: SIMETHICONE 40 MG/0.6 ML 30 ML BOTTLE PO PRN (17:56)
[2022-07-03] MEDS ORDERED: SIMETHICONE CHEW 80 MG TABLET PO SCH ×2 (18:00→19:00)
[2022-07-03 18:15] LABS: BASOPHILS % (AUTO) 0.3 %; EOSINOPHILS # (AUTO) 0.1 10^3/uL (0.0-0.7); EOSINOPHILS % (AUTO) 0.6 %; HCT - HEMATOCRIT 35.9 % (37.0-47.0); HGB - HEMOGLOBIN 11.9 g/dL (12.0-16.0); LYMPHOCYTES # (AUTO) 3.5 10^3/uL (1.5-3.5); LYMPHOCYTES % (AUTO) 24.2 %; MEAN CORPUSCULAR HEMOGLOBIN 30.4 pg (27.0-31.0); MEAN CORPUSCULAR HGB CONC 33.1 g/dL (32.0-36.0); MEAN CORPUSCULAR VOLUME 91.6 fL (81.0-99.0); MEAN PLATELET VOLUME 11.1 fL (7.9-10.8); MONOCYTES # (AUTO) 0.7 10^3/uL (0.0-1.0); MONOCYTES % (AUTO) 4.6 %; NEUTROPHILS # (AUTO) 10.1 10^3/uL (1.5-6.6); NEUTROPHILS % (AUTO) 69.9 %; PLT - PLATELET COUNT 291 10^3/uL (130-450); RED BLOOD COUNT 3.92 10^6/uL (4.20-5.40); RED CELL DISTRIBUTION WIDTH 15.2 % (12.0-15.0); WHITE BLOOD COUNT 14.4 x10^3/uL (4.8-10.8)
[2022-07-03 18:21] LABS: BILIRUBIN,URINE NEGATIVE (NEGATIVE); GLUCOSE, URINE (UA) NEGATIVE (NEGATIVE); KETONES,URINE (UA) TRACE mg/dL (NEGATIVE); LEUKOCYTE ESTERASE, URINE NEGATIVE (NEGATIVE); NITRITE,URINE NEGATIVE (NEGATIVE); OCCULT BLOOD,URINE NEGATIVE (NEGATIVE); PH,URINE 6.5 PH (5.0-7.5); PROTEIN,URINE NEGATIVE (NEGATIVE); UROBILINOGEN,URINE 0.2 (NORMAL) E.U./dL (NORMAL)
[2022-07-03 18:31] LABS: BACTERIA,URINE Moderate /HPF (None Seen); CLARITY,URINE CLEAR (CLEAR); RBC,URINE 0-5 /HPF (0-5); SQUAMOUS EPITHELIAL CELL,UR FEW Squamous (<= Few); WBC,URINE 0-3 /HPF (0-5)
== END 2022-07-03 19:00 | disposition home or self-care (01) ==
LOC: WFO 17:21 → FBP 17:23 → WFO 19:00
PROVIDERS: ATTEND Obstetrics & Gynecology
DX: O99.891 Other specified diseases and conditions complicating pregnancy (principal); R10.9 Unspecified abdominal pain; R30.0 Dysuria; O99.612 Diseases of the digestive system complicating pregnancy, second trimester; K59.00 Constipation, unspecified; Z3A.20 20 weeks gestation of pregnancy
CPT/HCPCS: 36415; 81001; 85025; 87086; 99212; A9270; 99215

== ENCOUNTER 2022-07-04 18:33 | Outpatient (CLI) | payer OTHER ==
--- NOTE | 2022-07-05 13:35 | Ultrasound Report ---
PROCEDURE: OB Detailed Eval INDICATIONS: SUPERVISION OF OUTSIDE/PRIOR DATING DATA: Last menstrual period (LMP): 02/14/2022. LMP-based estimated date of delivery (NOHEMY): 11/21/2022. First dating scan (date and location): 04/01/2022. Estimated date of delivery (NOHEMY) from first dating scan: 11/25/2022. TECHNIQUE: Real-time scanning was performed of the fetus, with image documentation and biometric measurements. Endovaginal scanning: Not performed COMPARISON: 05/01/2022 FINDINGS: General: A single living intrauterine gestation is present. Presentation: Vertex Placenta: Placental position is posterior, without previa. Amniotic fluid index: 14.3 cm, normal for gestational age. heart rate: 147 beats per minute. Maternal cervical canal: 3.9 cm long; normal length is 2.5 cm or more. biometrics: Biparietal diameter: 4.4 cm 19 weeks 3 days Head circumference: 16.7 cm 19 weeks 3 days Abdominal circumference: 15.1 cm 20 weeks 2 days Femur length: 2.9 cm 18 weeks 5 days Estimated gestational age from initial scan: 19 weeks 3 days. Composite gestational age from present scan: 19 weeks 4 days Estimated weight and percentile: 302 g, 56th percentile Measurement variability in biometric dating: +/- 10 days from 12-20 weeks gestation, +/- 2 weeks from 20-30 weeks gestation, +/- 3 weeks at 30 weeks gestation or later. Anatomic survey: Neuro: Ventricles are normal at less than 10 mm. Cisterna magna is normal at 3-11 mm. Cerebellum i s normal in size and morphology. Nuchal skin fold: Normal at less than 6 mm between 14 and 20 weeks gestational age. Face: Not well visualized Spine: No evidence for spina bifida. Heart: Not well visualized Diaphragm: Not well-visualized Stomach: Left-sided stomach is present. Kidneys: No hydronephrosis. Normal is less than 5 mm in 2nd trimester, less than 7 mm in 3rd trimester. Cord: 3 vessel cord has orthotopic insertion. Bladder: Normal in size. Extremities: All 4 extremities are visualized. IMPRESSION: 1. Single living intrauterine . 2. Estimated weight at the 56th percentile. 3. face, heart, and diaphragm not well visualized due to maternal body habitus and lie. A ttention on follow-up is recommended. Reviewed by: Lebron Ham MD on 07/05/2022 1:34 PM PDT Approved by: Lebron Ham MD on 07/05/2022 1:34 PM PDT Station ID: [id number]
== END 2022-07-04 18:34 | disposition home or self-care (01) ==
LOC: DI 18:33
PROVIDERS: ATTEND Nurse Practitioner
DX: Z34.92 Encounter for supervision of normal pregnancy, unspecified, second trimester (principal)

== ENCOUNTER 2022-07-18 12:33 | Outpatient (CLI) | payer OTHER ==
--- NOTE | 2022-07-18 18:08 | Ultrasound Report ---
PROCEDURE: OB F/U or Repeat INDICATIONS: SUPERVISION OF OUTSIDE/PRIOR DATING DATA: Last menstrual period (LMP): 02/14/2022. LMP-based estimated date of delivery (NOHEMY): 11/21/2022. First dating scan (date and location): 04/01/2022. Estimated date of delivery (NOHEMY) from first dating scan: 11/25/2022. TECHNIQUE: Real-time scanning was performed of the fetus, with image documentation and biometric measurements. Endovaginal scanning: Not performed COMPARISON: 07/04/2022 FINDINGS: General: A single living intrauterine gestation is present. Presentation: Cephalic Placenta: Placental position is posterior, without previa. Amniotic fluid index: 15.2 cm, normal for gestational age. heart rate: 133 beats per minute. Maternal cervical canal: 4.4 cm long; normal length is 2.5 cm or more. Other: face, nose/lips, profile, four-chamber cardiac view, left ventricular outflow tract, an d diaphragm are visualized and appear within normal limits. Right ventricular outflow tract is subopt imally visualized due to lie. IMPRESSION: 1. Single living intrauterine in cephalic presentation. 2. face, nose/lips, profile, four-chamber cardiac view, left ventricular outflow tract, and ramses phragm are visualized and appear within normal limits. Right ventricular outflow tract is suboptimall y visualized due to lie. Attention on follow-up recommended. Reviewed by: Lebron Ham MD on 07/18/2022 6:06 PM PDT Approved by: Lebron Ham MD on 07/18/2022 6:06 PM PDT Station ID: [id number]
== END 2022-07-18 12:34 | disposition home or self-care (01) ==
LOC: DI 12:33
PROVIDERS: ATTEND Nurse Practitioner
DX: Z34.90 Encounter for supervision of normal pregnancy, unspecified, unspecified trimester (principal)

== ENCOUNTER 2022-07-25 18:42 | Outpatient (CLI) | payer OTHER ==
[2022-07-25 18:56] VITALS: BP 119/57
[2022-07-25 19:44] LABS: BILIRUBIN,URINE NEGATIVE (NEGATIVE); GLUCOSE, URINE (UA) NEGATIVE (NEGATIVE); KETONES,URINE (UA) NEGATIVE (NEGATIVE); LEUKOCYTE ESTERASE, URINE NEGATIVE (NEGATIVE); NITRITE,URINE NEGATIVE (NEGATIVE); OCCULT BLOOD,URINE NEGATIVE (NEGATIVE); PROTEIN,URINE NEGATIVE (NEGATIVE); UROBILINOGEN,URINE 0.2 (NORMAL) E.U./dL (NORMAL)
[2022-07-25 19:45] LABS: CLARITY,URINE CLEAR (CLEAR)
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
== END 2022-07-25 20:00 | disposition home or self-care (01) ==
LOC: WFO 18:42 → FBP 18:43 → WFO 20:00
PROVIDERS: ATTEND Obstetrics & Gynecology
DX: O99.891 Other specified diseases and conditions complicating pregnancy (principal); R10.9 Unspecified abdominal pain; R10.2 Pelvic and perineal pain; Z73.3 Stress, not elsewhere classified; O99.342 Other mental disorders complicating pregnancy, second trimester; F32.A Depression, unspecified; F43.9 Reaction to severe stress, unspecified; Z3A.23 23 weeks gestation of pregnancy; Z63.0 Problems in relationship with spouse or partner
CPT/HCPCS: 81001; 81003; 87086; 99213

== ENCOUNTER 2022-08-04 18:56 | Outpatient (CLI) | payer OTHER | END 2022-08-04 23:59 | disposition critical access hospital (66) | LOC: EMS 18:56 | DX: R45.851 Suicidal ideations (principal); S81.811A Laceration without foreign body, right lower leg, initial encounter; X78.9XXA Intentional self-harm by unspecified sharp object, initial encounter | CPT/HCPCS: A0425; A0429 ==

== ENCOUNTER 2022-08-04 19:11 | Emergency (ER) | payer OTHER ==
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
[2022-08-04 19:32] LABS: BASOPHILS % (AUTO) 0.3 %; EOSINOPHILS # (AUTO) 0.2 10^3/uL (0.0-0.7); EOSINOPHILS % (AUTO) 1.4 %; HGB - HEMOGLOBIN 11.1 g/dL (12.0-16.0); LYMPHOCYTES # (AUTO) 2.9 10^3/uL (1.5-3.5); LYMPHOCYTES % (AUTO) 19.5 %; MEAN CORPUSCULAR HEMOGLOBIN 30.5 pg (27.0-31.0); MEAN CORPUSCULAR HGB CONC 33.6 g/dL (32.0-36.0); MEAN CORPUSCULAR VOLUME 90.7 fL (81.0-99.0); MEAN PLATELET VOLUME 10.7 fL (7.9-10.8); MONOCYTES # (AUTO) 0.8 10^3/uL (0.0-1.0); MONOCYTES % (AUTO) 5.3 %; NEUTROPHILS # (AUTO) 10.9 10^3/uL (1.5-6.6); NEUTROPHILS % (AUTO) 72.8 %; PLT - PLATELET COUNT 305 10^3/uL (130-450); RED BLOOD COUNT 3.64 10^6/uL (4.20-5.40); RED CELL DISTRIBUTION WIDTH 14.3 % (12.0-15.0)
[2022-08-04 19:41] LABS: ACETAMINOPHEN < 10 ug/mL (10-30); ALBUMIN 3.4 g/dL (3.2-5.5); ALBUMIN/GLOBULIN RATIO 0.9 (1.0-2.2); ALKALINE PHOSPHATASE 100 IU/L (42-121); ALT ALANINE AMINOTRANSFERASE 16 IU/L (10-60); AST ASPARTATE AMINOTRANSFERASE 17 IU/L (10-42); BILIRUBIN,TOTAL 0.4 mg/dL (0.2-1.0); BUN - BLOOD UREA NITROGEN 7 mg/dL (6-20); CALCIUM 8.8 mg/dL (8.5-10.3); CARBON DIOXIDE - CO2 22 mmol/L (21-32); CHLORIDE 108 mmol/L (101-111); CK- CREATINE KINASE 51 IU/L (22-269); CREATININE 0.5 mg/dL (0.4-1.0); ETOH - ETHANOL < 5.0 mg/dL; GFR - MDRD 153 (>89); GLUCOSE 98 mg/dL (70-100); LIPASE 33 U/L (22-51); MAGNESIUM 1.8 mg/dL (1.7-2.8); POTASSIUM 3.6 mmol/L (3.5-5.0); SALICYLATE < 6.0 mg/dL; SODIUM 138 mmol/L (135-145); TOTAL PROTEIN 7.1 g/dL (6.7-8.2)
[2022-08-04 20:17] LABS: MUDS CUTOFF CONCENTRATIONS CUTOFF CONC BELOW:
[2022-08-04 20:19] LABS: BILIRUBIN,URINE NEGATIVE (NEGATIVE); GLUCOSE, URINE (UA) NEGATIVE (NEGATIVE); KETONES,URINE (UA) NEGATIVE (NEGATIVE); LEUKOCYTE ESTERASE, URINE SMALL (NEGATIVE); NITRITE,URINE NEGATIVE (NEGATIVE); OCCULT BLOOD,URINE NEGATIVE (NEGATIVE); PH,URINE 6.5 PH (5.0-7.5); PROTEIN,URINE NEGATIVE (NEGATIVE); UROBILINOGEN,URINE 0.2 (NORMAL) E.U./dL (NORMAL)
[2022-08-04 20:25] LABS: CLARITY,URINE HAZY (CLEAR)
[2022-08-04 20:31] LABS: BACTERIA,URINE Many /HPF (None Seen); RBC,URINE 0-5 /HPF (0-5); SQUAMOUS EPITHELIAL CELL,UR MANY Squamous (<= Few)
[2022-08-04 20:32] LABS: AMORPHOUS SEDIMENT,UR Rare /LPF; COCAINE SCREEN URINE NEGATIVE (NEGATIVE); METHAMPHETAMINES SCREEN, URINE NEGATIVE (NEGATIVE); OPIATE SCREEN, URINE NEGATIVE (NEGATIVE); THC CANNABINOID SCREEN, URINE NEGATIVE (NEGATIVE)
[2022-08-04 20:33] LABS: AMPHETAMINE SCREEN,URINE NEGATIVE (NEGATIVE); BARBITURATE SCREEN,UR NEGATIVE (NEGATIVE); BENZODIAZEPINES SCREEN, URINE NEGATIVE (NEGATIVE); METHADONE SCREEN, URINE NEGATIVE (NEGATIVE); OXYCODONE SCREEN, URINE NEGATIVE (NEGATIVE); PROPOXYPHENE SCREEN, URINE NEGATIVE (NEGATIVE); TRICYCLIC ANTIDEPRESSANT,URINE NEGATIVE (NEGATIVE)
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
--- NOTE | 2022-08-04 22:24 | ED Physician Documentation ---
ED Addendum - Addendum Addendum: 08/04/22 21:55 Patient signed out to me by Dr. Elkins. Patient has been seen by Michelle with the [facility]. Michelle does not feel the patient requires involuntary detainment at this time. She feels that she is safe to go home tonight. She is planning on setting her up with [facility] ([facility]) voluntary And states that A person named Telma from [facility] will check up on the pt tomorrow. I have also spoken to the patient At the bedside. She feels comfortable going home and states that she does not feel suicidal. She feels safe at home. She understands the plan for outpatient follow-up with [facility]. She is also advised that she can return to the emergency department or call 911 if she is feeling worse in any way or is having thoughts of hurting herself. Departure - Departure Disposition: 01 Home, Self Care Clinical Impression: Depression Condition: Stable Instructions: ED Depression Comments: Follow-up with [facility] at [phone] to schedule psychiatric care and counseling. Return to the emergency department or call 911 at any time if you have any thoughts of hurting yourself or feeling worse in any way. 988 Suicide and Crisis Lifeline Hours: Available 24 hours. Languages: Arabic, Greek.
[2022-08-04 22:30] VITALS: BP 119/66
== END 2022-08-04 22:29 | disposition home or self-care (01) ==
LOC: EDUNIT# → ED 19:11
DX: O99.342 Other mental disorders complicating pregnancy, second trimester (principal); O99.891 Other specified diseases and conditions complicating pregnancy; S81.811A Laceration without foreign body, right lower leg, initial encounter; X78.1XXA Intentional self-harm by knife, initial encounter; Y93.89 Activity, other specified
CPT/HCPCS: 36415; 80053; 80306; 80307; 80320; 80329; 81001; 82550; 83690; 83735; 84443; 85025; 87635; 90834; 99283; 99284; Q3014; 81003; 87086

== ENCOUNTER 2022-08-07 14:27 | Outpatient (CLI) | payer OTHER ==
--- NOTE | 2022-08-07 20:05 | Ultrasound Report ---
PROCEDURE: OB F/U or Repeat INDICATIONS: SUPERVISION OF OUTSIDE/PRIOR DATING DATA: Last menstrual period (LMP): 02/14/2022. LMP-based estimated date of delivery (NOHEMY): 11/21/2022. First dating scan (date and location): 04/01/2022. Estimated date of delivery (NOHEMY) from first dating scan: 11/25/2022. The below data below was generated using the ultrasound NOHEMY of 11/25/2022 TECHNIQUE: Real-time scanning was performed of the fetus, with image documentation. Endovaginal scanning: Not performed COMPARISON: OB ultrasound 07/18/2022 FINDINGS: General: A single living intrauterine gestation is present. Presentation: Cephalic Placenta: Placental position is posterior, without previa. Amniotic fluid index: 16.5 cm, 66th percentile for gestational age. heart rate: 130 beats per minute. Maternal cervical canal: 5.0 cm long; normal length is 2.5 cm or more. Estimated gestational age from initial scan: 24 weeks 2 days. Other: Right ventricular outflow tract is normal. Four-chamber view and left ventricular outflow t ract also appear normal. IMPRESSION: 1.Single live intrauterine . 2.Normal right ventricular outflow tract. This completes the anatomic survey. Reviewed by: Lebron Pettit MD on 08/07/2022 8:04 PM PDT Approved by: Lebron Pettit MD on 08/07/2022 8:04 PM PDT Station ID: [id number]
== END 2022-08-07 14:28 | disposition home or self-care (01) ==
LOC: DI 14:27
PROVIDERS: ATTEND Nurse Practitioner
DX: Z34.92 Encounter for supervision of normal pregnancy, unspecified, second trimester (principal)

== ENCOUNTER 2022-08-27 14:32 | Outpatient (CLI) | payer OTHER ==
[2022-08-27 18:02] LABS: HCT - HEMATOCRIT 33.5 % (37.0-47.0); HGB - HEMOGLOBIN 10.8 g/dL (12.0-16.0); MEAN CORPUSCULAR HEMOGLOBIN 30.1 pg (27.0-31.0); MEAN CORPUSCULAR HGB CONC 32.2 g/dL (32.0-36.0); MEAN CORPUSCULAR VOLUME 93.3 fL (81.0-99.0); MEAN PLATELET VOLUME 11.4 fL (7.9-10.8); RED BLOOD COUNT 3.59 10^6/uL (4.20-5.40); RED CELL DISTRIBUTION WIDTH 13.8 % (12.0-15.0); WHITE BLOOD COUNT 11.2 x10^3/uL (4.8-10.8)
== END 2022-08-27 14:33 | disposition home or self-care (01) ==
LOC: LAB.N 14:32
PROVIDERS: ATTEND Nurse Practitioner
DX: Z34.90 Encounter for supervision of normal pregnancy, unspecified, unspecified trimester (principal); Z36.89 Encounter for other specified antenatal screening
CPT/HCPCS: 36415; 82950; 85027

== ENCOUNTER 2022-08-31 10:38 | Emergency (ER) | payer OTHER ==
[2022-08-31 11:29] LABS: BASOPHILS % (AUTO) 0.2 %; EOSINOPHILS # (AUTO) 0.1 10^3/uL (0.0-0.7); EOSINOPHILS % (AUTO) 0.8 %; HCT - HEMATOCRIT 35.6 % (37.0-47.0); HGB - HEMOGLOBIN 11.4 g/dL (12.0-16.0); LYMPHOCYTES # (AUTO) 2.9 10^3/uL (1.5-3.5); LYMPHOCYTES % (AUTO) 21.7 %; MEAN CORPUSCULAR HEMOGLOBIN 29.7 pg (27.0-31.0); MEAN CORPUSCULAR VOLUME 92.7 fL (81.0-99.0); MEAN PLATELET VOLUME 11.2 fL (7.9-10.8); MONOCYTES # (AUTO) 0.6 10^3/uL (0.0-1.0); MONOCYTES % (AUTO) 4.1 %; NEUTROPHILS # (AUTO) 9.7 10^3/uL (1.5-6.6); NEUTROPHILS % (AUTO) 72.8 %; PLT - PLATELET COUNT 325 10^3/uL (130-450); RED BLOOD COUNT 3.84 10^6/uL (4.20-5.40); RED CELL DISTRIBUTION WIDTH 13.8 % (12.0-15.0); WHITE BLOOD COUNT 13.4 x10^3/uL (4.8-10.8)
[2022-08-31] MEDS ORDERED: ACETAMINOPHEN 500 MG TABLET PO STA (11:50)
[2022-08-31] MEDS ORDERED: SODIUM CHLORIDE 0.9% 1,000 ML IV STA (11:51)
[2022-08-31] MEDS ORDERED: ONDANSETRON 4 MG/2 ML VIAL IVP STA (11:51)
[2022-08-31 11:52] LABS: BILIRUBIN,URINE NEGATIVE (NEGATIVE); GLUCOSE, URINE (UA) NEGATIVE (NEGATIVE); KETONES,URINE (UA) NEGATIVE (NEGATIVE); LEUKOCYTE ESTERASE, URINE MODERATE (NEGATIVE); NITRITE,URINE NEGATIVE (NEGATIVE); OCCULT BLOOD,URINE NEGATIVE (NEGATIVE); PROTEIN,URINE NEGATIVE (NEGATIVE); UROBILINOGEN,URINE 0.2 (NORMAL) E.U./dL (NORMAL)
[2022-08-31 12:03] LABS: ALBUMIN 3.6 g/dL (3.2-5.5); ALBUMIN/GLOBULIN RATIO 1.1 (1.0-2.2); BILIRUBIN,TOTAL 0.4 mg/dL (0.2-1.0); CALCIUM 9.1 mg/dL (8.5-10.3); CREATININE 0.5 mg/dL (0.6-1.3); TOTAL PROTEIN 6.8 g/dL (6.4-8.9)
[2022-08-31 12:06] LABS: CLARITY,URINE CLEAR (CLEAR)
[2022-08-31 12:32] LABS: BACTERIA,URINE Few /HPF (None Seen); RBC,URINE 0-5 /HPF (0-5); SQUAMOUS EPITHELIAL CELL,UR MANY Squamous (<= Few)
--- NOTE | 2022-08-31 13:11 | ED Physician Documentation ---
History of Present Illness - Stated complaint Stated Complaint: VALIENTE, NAUSEA - Chief complaint Chief Complaint: General - History obtained from History obtained from: Patient - Additonal information Additional information: Patient is a 22-year-old female G1, P0 who is approximately 28 weeks presenting for evaluation of headache with nausea and vomiting that has been present since yesterday. Patient reports having a frontal headache throughout this week and has been working more. Yesterday she started having some episodes of nausea and vomiting. She did have a nausea earlier on in her but no longer has any medication for it. Said she feels lightheaded at times with standing. She was seen here earlier this week for mental health concerns and discharged home. Patient denies any abdominal symptoms or vaginal bleeding or discharge. She is feeling the baby move. Patient denies that her headache is thunderclap in intensity. She has not tried anything for her symptoms. She denies fever, chest pain, difficulty breathing. Review of Systems Constitutional: denies: Fever Cardiac: denies: Chest pain / pressure Respiratory: denies: Dyspnea GI: denies: Abdominal Pain, Vomiting : denies: Vaginal bleeding Musculoskeletal: denies: Extremity swelling Neurologic: reports: Headache PD PAST MEDICAL HISTORY - Past Medical History Past Medical History: No Cardiovascular: None Respiratory: None Endocrine/Autoimmune: None - Past Surgical History Past Surgical History: No - Present Medications Home Medications: Ambulatory Orders Medication Instructions Recorded Confirmed Acetaminophen [Acetaminophen Extra 500 mg PO QID PRN #50 tablet 04/26/22 Strength] Doxylamine Succinate [Unisom] 25 mg PO Q8H PRN #30 tablet 04/26/22 06/02/22 Ondansetron Odt [Zofran] 4 mg TL Q6H PRN #20 tablet 04/26/22 06/02/22 Vit No.180/Iron/Folic 1 each PO DAILY 30 Days #30 tablet 04/26/22 06/02/22 [ Plus Vitamin-Mineral] Nitrofurantoin [Macrobid] 100 mg PO BID #14 cap 07/03/22 Ondansetron Odt [Zofran] 4 mg TL Q6H PRN #10 tablet 08/31/22 - Allergies Allergies/Adverse Reactions: Allergies Allergy/AdvReac Type Severity Reaction Status Date / Time aspirin Allergy Hives Verified 08/31/22 10:48 - Social History Does the pt smoke?: No Smoking Status: Never smoker Does the pt drink ETOH?: No Does the pt have substance abuse?: No - Immunizations Immunizations are current?: Yes PD ED PE NORMAL - General General: Alert and oriented X 3, No acute distress, Well developed/nourished - HEENT HEENT: Atraumatic, PERRL, EOMI, Moist mucous membranes, Pharynx benign - Neck Neck: Supple, no meningeal sign, No bony TTP - Cardiac Cardiac: RRR, No murmur - Respiratory Respiratory: No respiratory distress, Clear bilaterally - Abdomen Abdomen: Normal bowel sounds, Soft, Other (Gravid consistent with third trimester gestation, no tenderness) - Derm Derm: Warm and dry - Neuro Neuro: Alert and oriented X 3, marketing content coordinator 2-12 intact, No motor deficit, No sensory deficit, Normal speech Results - Vitals Vitals: Vital Signs - 24 hr 08/31/22 08/31/22 10:45 13:16 Temperature 37.0 C Heart Rate 82 65 Respiratory 18 18 Rate Blood Pressure 120/65 115/81 H O2 Saturation 99 100 Oxygen O2 Source Room air - Labs Labs: Laboratory Tests 08/31/22 08/31/22 08/31/22 11:21 11:21 11:45 WBC 13.4 H RBC 3.84 L Hgb 11.4 L Hct 35.6 L MCV 92.7 MCH 29.7 MCHC 32.0 RDW 13.8 Plt Count 325 MPV 11.2 H Neut # (Auto) 9.7 H Lymph # (Auto) 2.9 [place] # (Auto) 0.6 Eos # (Auto) 0.1 Baso # (Auto) 0.0 Absolute Nucleated RBC 0.00 Nucleated RBC % 0.0 Sodium 136 Potassium 4.0 Chloride 106 Carbon Dioxide 26 Anion Gap 4.0 L BUN 5 L Creatinine 0.5 L Estimated GFR (MDRD) 153 Glucose 90 Calcium 9.1 Total Bilirubin 0.4 AST 10 ALT 11 Alkaline Phosphatase 131 H Total Protein 6.8 Albumin 3.6 Globulin 3.2 Albumin/Globulin Ratio 1.1 Urine Color LT. YELLOW Urine Clarity CLEAR Urine pH 7.0 Ur Specific [place] <=1.005 Urine Protein NEGATIVE Urine Glucose (UA) NEGATIVE Urine Ketones NEGATIVE Urine Occult Blood NEGATIVE Urine Nitrite NEGATIVE Urine Bilirubin NEGATIVE Urine Urobilinogen 0.2 (NORMAL) Ur Leukocyte Esterase MODERATE H Urine RBC 0-5 Urine WBC 6-10 H Ur Squamous Epith Cells MANY Squamous H Urine Bacteria Few Ur Microscopic Review INDICATED Urine Culture Comments NOT INDICATED PD Medical Decision Making - ED course Complexity details: reviewed results, re-evaluated patient, d/w patient ED course: Patient is a 22-year-old who is in her third trimester of presenting for evaluation of headache with nausea and vomiting. She has no other abdominal complaints such as pain or bleeding. Her neuro exam is normal and her vital signs are stable. She is well-appearing. Her blood pressure is within normal parameters throughout her ED course. Labs were reviewed including CBC, chemistries. She has mild anemia which is slightly improved from prior labs. She is feeling better with IV fluids, Zofran and acetaminophen. Denies UTI symptoms. Urine analysis is not a clean-catch. She has been having close follow-up with her OB. Patient counseled on continued supportive care and prescription for Zofran was given. Patient advised on strict return precautions for any worsening symptoms. 1303 - Pt states she is feeling better. No longer has nausea or headache. Has an upcoming OB appointment on the . heart tones were 153. Departure - Departure Disposition: Home, Self Care Clinical Impression: Headache, Nausea & vomiting Condition: Stable Instructions: ED Cephalgia Unspecified, ED Nausea Vomiting Prescriptions: Ondansetron Odt [Zofran] 4 mg TL Q6H PRN #10 tablet PRN Reason: Nausea / Vomiting Comments: You have been evaluated for headache and nausea and vomiting. Your labs were checked and you are slightly anemic but your hemoglobin today is slightly better than a few days ago. We did give you medications to help with your symptoms including IV fluids, Zofran and Tylenol. You can continue with Tylenol as needed for pain which is safe in . I have also sent a prescription for Zofran which may help you with the nausea to [facility] in [place]. Please continue to have close follow-up with your OB. Return to the emergency department with any worsening symptoms. Forms: PCP List Discharge Date/Time: 08/31/22 13:40
[2022-08-31 13:20] VITALS: BP 115/81
== END 2022-08-31 13:40 | disposition home or self-care (01) ==
LOC: ED 10:38
DX: O26.893 Other specified pregnancy related conditions, third trimester (principal); Z3A.28 28 weeks gestation of pregnancy; R51.9 Headache, unspecified; O21.2 Late vomiting of pregnancy
CPT/HCPCS: 36415; 80053; 81001; 85025; 96374; 99283; A9270; 81003; 87086

== ENCOUNTER 2022-09-16 21:35 | Outpatient (CLI) | payer OTHER ==
[2022-09-16 22:17] LABS: BASOPHILS % (AUTO) 0.1 %; EOSINOPHILS # (AUTO) 0.2 10^3/uL (0.0-0.7); HCT - HEMATOCRIT 33.2 % (37.0-47.0); HGB - HEMOGLOBIN 10.6 g/dL (12.0-16.0); LYMPHOCYTES # (AUTO) 3.5 10^3/uL (1.5-3.5); LYMPHOCYTES % (AUTO) 24.3 %; MEAN CORPUSCULAR HEMOGLOBIN 28.9 pg (27.0-31.0); MEAN CORPUSCULAR HGB CONC 31.9 g/dL (32.0-36.0); MEAN CORPUSCULAR VOLUME 90.5 fL (81.0-99.0); MONOCYTES # (AUTO) 0.7 10^3/uL (0.0-1.0); MONOCYTES % (AUTO) 4.9 %; NEUTROPHILS % (AUTO) 69.2 %; PLT - PLATELET COUNT 306 10^3/uL (130-450); RED BLOOD COUNT 3.67 10^6/uL (4.20-5.40); RED CELL DISTRIBUTION WIDTH 14.1 % (12.0-15.0); WHITE BLOOD COUNT 14.5 x10^3/uL (4.8-10.8)
[2022-09-16 22:28] LABS: ALBUMIN 3.2 g/dL (3.2-5.5); ALBUMIN/GLOBULIN RATIO 0.8 (1.0-2.2); BILIRUBIN,TOTAL 0.6 mg/dL (0.2-1.0); CALCIUM 8.9 mg/dL (8.5-10.3); CREATININE 0.5 mg/dL (0.4-1.0); POTASSIUM 3.6 mmol/L (3.5-5.0)
[2022-09-16 22:43] LABS: BILIRUBIN,URINE NEGATIVE (NEGATIVE); GLUCOSE, URINE (UA) NEGATIVE (NEGATIVE); KETONES,URINE (UA) NEGATIVE (NEGATIVE); LEUKOCYTE ESTERASE, URINE SMALL (NEGATIVE); NITRITE,URINE NEGATIVE (NEGATIVE); OCCULT BLOOD,URINE NEGATIVE (NEGATIVE); PH,URINE 6.5 PH (5.0-7.5); PROTEIN,URINE NEGATIVE (NEGATIVE); UROBILINOGEN,URINE 0.2 (NORMAL) E.U./dL (NORMAL)
[2022-09-16 23:00] LABS: CLARITY,URINE CLEAR (CLEAR)
[2022-09-16 23:20] VITALS: BP 109/55
--- NOTE | 2022-09-16 23:53 | PROVIDER PROGRESS NOTE ---
- HPI Chief Complaint: GI symptoms Current : Vital Signs Temperature 99.1 F 09/16/22 21:41 Heart Rate 74 09/16/22 21:41 Respiratory Rate 18 09/16/22 21:41 Blood Pressure 111/93 H 09/16/22 21:41 Temperature 99.1 F 09/16/22 22:00 Heart Rate 72 09/16/22 23:18 Respiratory Rate 20 09/16/22 23:18 Blood Pressure 109/55 L 09/16/22 23:18 O2 Saturation If not protocol: Oxygen Flow, liters/minute Current EDU 11/20/22 Gestation 30 Weeks and 6 Days 1 Para 0 - Procedures OB Procedure Performed: NST Diagnosis/Indication for NST: Other (Nausea and vomiting) Service Date of procedure: 09/16/22 (Read 09/16/2022) - Plan Plan: Patient is a 22-year-old G1, P0 at 30 weeks 6 days gestation presenting to triage for constipation and nausea. She says this has worsened over the last several days. Nausea is every day and still does occasionally take Zofran which helps. She feels more like a decreased appetite and is wonder if this is her constipation.. She has good movement, no leaking, no vaginal bleeding. She denies headache, right upper quadrant pain, changes in vision. Physical Exam Constitutional: alert, no acute distress, well hydrated, well developed, well nourished, appropriate dress. Cardiovascular: Regular rate and rhythm. Respiratory: no respiratory distress. Abdomen: nondistended, nontender, no guarding. Psych: affect and mood appropriate, normal interaction, good eye contact. FHT: 125 beats per baseline, moderate ability, accelerations present, no decelerations. Reactive NST [place]: Quiescent Assessment and plan 22-year-old G1, P0 at 30 weeks gestation with discomforts of 1. Constipation: Still having regular bowel movements daily, decreased from before. Advised that she can take a stool softener if this becomes problematic. Take 1, once or twice a day. Prescription sent to pharmacy. Overall I think patient is stre ssed out about life and her and does not appear to have acute complaints. These are discomforts and will work on alleviating these over time. 2. Nausea and vomiting -Has Zofran left. Declines need for metoclopramide, but did discuss this may help with her decreased appetite. Has follow-up on to discuss in the outpatient clinic 3. Decreased appetite -Is keeping liquids down well as well as small snacks. Able to tolerate meals frequently, but does occasionally have vomiting.
== END 2022-09-17 00:10 | disposition home or self-care (01) ==
LOC: WFO 21:35 → FBP 21:37 → WFO 09-17 00:10
PROVIDERS: ATTEND Obstetrics & Gynecology
DX: O99.613 Diseases of the digestive system complicating pregnancy, third trimester (principal); K59.00 Constipation, unspecified; O21.2 Late vomiting of pregnancy; R63.0 Anorexia; Z73.3 Stress, not elsewhere classified; Z3A.30 30 weeks gestation of pregnancy
CPT/HCPCS: 36415; 59025; 80053; 81003; 85025; 99215

== ENCOUNTER 2022-11-23 21:20 | Outpatient (CLI) | payer OTHER | END 2022-11-23 21:21 | disposition short-term general hospital (02) | LOC: EMS 21:20 | DX: O99.893 Other specified diseases and conditions complicating puerperium (principal); R07.9 Chest pain, unspecified; R11.2 Nausea with vomiting, unspecified; R10.816 Epigastric abdominal tenderness; R51.9 Headache, unspecified; R53.83 Other fatigue | CPT/HCPCS: A0425; A0427 ==

== ENCOUNTER 2022-11-29 22:39 | Outpatient (CLI) | payer OTHER | END 2022-11-29 23:59 | disposition critical access hospital (66) | LOC: EMS 22:39 | DX: R07.9 Chest pain, unspecified (principal); M54.9 Dorsalgia, unspecified; R10.11 Right upper quadrant pain; R10.12 Left upper quadrant pain; R11.2 Nausea with vomiting, unspecified | CPT/HCPCS: A0425; A0427 ==

== ENCOUNTER 2022-11-29 22:58 | Emergency (ER) | payer OTHER ==
[2022-11-29 23:08] VITALS: O2SAT 98
[2022-11-29] MEDS ORDERED: LIDOCAINE VISCOUS 2% 15 ML ORAL SYRINGE MM STA (23:22)
[2022-11-29] MEDS ORDERED: MAG HYDROX/AL HYDROX/SIMETH 30 ML UDC PO STA (23:22)
--- NOTE | 2022-11-29 23:34 | ED Physician Documentation ---
History of Present Illness - Stated complaint Stated Complaint: CHEST PX - Chief complaint Chief Complaint: Cardiac - History obtained from History obtained from: Patient - Additonal information Additional information: 22-year-old female presents by EMS from home for sharp midepigastric abdominal pain. Patient states that she had a similar episode 1 week ago and went to [facility], where she states her work-up was negative. She has had intermittent burning after eating food all week, however this evening after eating dinner patient had another episode of sharp pain that radiated upward in to her chest and so she called 911. Patient given zofran by EMS prior to arrival. Review of Systems Constitutional: denies: Fever, Chills Cardiac: reports: Chest pain / pressure. denies: Palpitations, Calf pain Respiratory: denies: Dyspnea, Cough, Wheezing GI: reports: Abdominal Pain, Nausea. denies: Vomiting Skin: denies: Rash, Lesions, Abrasion (s) Musculoskeletal: denies: Neck pain, Back pain, Extremity pain, Joint pain, Extr emity swelling PD PAST MEDICAL HISTORY - Past Medical History Past Medical History: Yes Cardiovascular: None Respiratory: None Endocrine/Autoimmune: None - Past Surgical History Past Surgical History: No - Present Medications Home Medications: Ambulatory Orders Medication Instructions Recorded Confirmed Vit No.180/Iron/Folic 1 each PO DAILY 30 Days #30 tablet 04/26/22 11/30/22 [ Plus Vitamin-Mineral] Vitamin B Complex Vit C No.3 [B 1 each PO BID #60 cap 09/17/22 11/30/22 Complex with Vitamin C] Dicyclomine [Bentyl] 1 - 2 tab PO QID PRN #20 cap 11/30/22 Famotidine [Pepcid] 20 mg PO BID #60 tablet 11/30/22 Sertraline HCl [Zoloft] 25 mg PO DAILY 11/30/22 11/30/22 Sucralfate [Carafate] 1 gm PO ACHS #60 tablet 11/30/22 - Allergies Allergies/Adverse Reactions: Allergies Allergy/AdvReac Type Severity Reaction Status Date / Time aspirin Allergy Hives Verified 11/29/22 23:02 - Social History Does the pt smoke?: No Smoking Status: Never smoker Does the pt drink ETOH?: No Does the pt have substance abuse?: No - Immunizations Immunizations are current?: Yes PD ED PE NORMAL - Vitals Vital signs reviewed: Yes - General General: Alert and oriented X 3, No acute distress, Well developed/nourished - HEENT HEENT: Atraumatic - Neck Neck: Supple, no meningeal sign - Cardiac Cardiac: RRR, Strong equal pulses - Respiratory Respiratory: No respiratory distress, Clear bilaterally - Abdomen Abdomen: Soft, Non distended, Other (midepigastric tenderness to deep palpation) - Back Back: No CVA TTP, No spinal TTP - Derm Derm: Normal color, Warm and dry, No rash - Extremities Extremities: No deformity, No tenderness to palpate, Normal ROM s pain - Neuro Neuro: Alert and oriented X 3, alternative energy engineer 2-12 intact, No motor deficit, Normal speech - Psych Psych: Normal mood, Normal affect Results - Vitals Vitals: Vital Signs - 24 hr 11/29/22 11/29/22 23:03 23:06 Temperature 36.5 C 36.5 C Heart Rate 64 64 Respiratory 16 16 Rate Blood Pressure 118/62 118/62 O2 Saturation 98 98 Oxygen O2 Source Room air - EKG (time done) 6 EKG releavant findings:: EKG personally interpreted by author of this note. Relevant findings are: Rate: Rate (enter#) (55) Rhythm: Sinus bradycardia [place]: Normal Intervals: Normal MA QRS: Normal Ischemia: Normal ST segments - Labs Labs: Laboratory Tests 11/29/22 11/29/22 11/29/22 23:35 23:35 23:35 WBC 9.6 RBC 3.78 L Hgb 10.7 L Hct 34.1 L MCV 90.2 MCH 28.3 MCHC 31.4 L RDW 15.1 H Plt Count 334 MPV 11.3 H Neut # (Auto) 6.3 Lymph # (Auto) 2.6 [place] # (Auto) 0.5 Eos # (Auto) 0.2 Baso # (Auto) 0.0 Absolute Nucleated RBC 0.00 Nucleated RBC % 0.0 Sodium 139 Potassium 3.8 Chloride 106 Carbon Dioxide 27 Anion Gap 6.0 BUN 5 L Creatinine 0.7 Estimated GFR (MDRD) 104 Glucose 92 Calcium 9.0 Total Bilirubin 0.5 AST 28 ALT 23 Alkaline Phosphatase 125 H Troponin I High Sens 2.3 Total Protein 7.2 Albumin 4.1 Globulin 3.1 Albumin/Globulin Ratio 1.3 Lipase 43 PD Medical Decision Making - ED course Complexity details: reviewed old records, reviewed results, re-evaluated patient, considered differential, d/w patient ED course: Well-appearing patient with the above complaint. Abdomen is soft, mild midepigastric tenderness to deep palpation without rebound or guarding. Vital signs unremarkable. Suspect gastritis due to timing and nature of patient's reported pain. Laboratory work is unremarkable. Symptoms improved with GI cocktail. Patient advised of all lab and imaging findings, recommended PCP follow-up. Will trial GI cocktail with Pepcid, Bentyl, Carafate. ED return precautions discussed at bedside. Departure - Departure Disposition: Home, Self Care Clinical Impression: Abdominal pain Qualifiers: Abdominal location: epigastric Qualified Code(s): R10.13 - Epigastric pain Condition: Stable Instructions: ED Abdominal Pain Female Non-Specific Abdominal Pain Prescriptions: Dicyclomine [Bentyl] 1 - 2 tab PO QID PRN #20 cap PRN Reason: Abdominal Pain Sucralfate [Carafate] 1 gm PO ACHS #60 tablet Famotidine [Pepcid] 20 mg PO BID #60 tablet Forms: PCP List
[2022-11-29 23:52] LABS: BASOPHILS % (AUTO) 0.3 %; EOSINOPHILS # (AUTO) 0.2 10^3/uL (0.0-0.7); EOSINOPHILS % (AUTO) 1.6 %; HCT - HEMATOCRIT 34.1 % (37.0-47.0); HGB - HEMOGLOBIN 10.7 g/dL (12.0-16.0); LYMPHOCYTES # (AUTO) 2.6 10^3/uL (1.5-3.5); LYMPHOCYTES % (AUTO) 27.3 %; MEAN CORPUSCULAR HEMOGLOBIN 28.3 pg (27.0-31.0); MEAN CORPUSCULAR HGB CONC 31.4 g/dL (32.0-36.0); MEAN CORPUSCULAR VOLUME 90.2 fL (81.0-99.0); MEAN PLATELET VOLUME 11.3 fL (7.9-10.8); MONOCYTES # (AUTO) 0.5 10^3/uL (0.0-1.0); MONOCYTES % (AUTO) 4.7 %; NEUTROPHILS # (AUTO) 6.3 10^3/uL (1.5-6.6); NEUTROPHILS % (AUTO) 65.8 %; PLT - PLATELET COUNT 334 10^3/uL (130-450); RED BLOOD COUNT 3.78 10^6/uL (4.20-5.40); RED CELL DISTRIBUTION WIDTH 15.1 % (12.0-15.0); WHITE BLOOD COUNT 9.6 x10^3/uL (4.8-10.8)
[2022-11-30 00:08] LABS: ALBUMIN 4.1 g/dL (3.2-5.5); ALBUMIN/GLOBULIN RATIO 1.3 (1.0-2.2); BILIRUBIN,TOTAL 0.5 mg/dL (0.2-1.0); CREATININE 0.7 mg/dL (0.6-1.3); POTASSIUM 3.8 mmol/L (3.5-4.5); TOTAL PROTEIN 7.2 g/dL (6.4-8.9)
--- NOTE | 2022-11-30 00:18 | XRAY Report ---
PROCEDURE: Chest 1 View X-Ray INDICATIONS: CP TECHNIQUE: One view of the chest was acquired. COMPARISON: None. FINDINGS: Surgical changes and devices: None. Lungs and pleura: No pleural effusions or pneumothorax. Lungs are clear. Mediastinum: Mediastinal contours appear normal. Heart size is normal. Bones and chest wall: No suspicious bony lesions. Overlying soft tissues appear unremarkable. IMPRESSION: No acute cardiopulmonary process. Reviewed by: Lebron Ham MD on 11/30/2022 12:17 AM PDT Approved by: Lebron Ham MD on 11/30/2022 12:17 AM PDT Station ID: [id number]
[2022-11-30 02:21] VITALS: BP 134/69
== END 2022-11-30 01:05 | disposition home or self-care (01) ==
LOC: EDUNIT# → ED 22:58
DX: R10.13 Epigastric pain (principal)
CPT/HCPCS: 36415; 71045; 80053; 83690; 84484; 85025; 93005; 99284; A9270

== ENCOUNTER 2023-02-22 18:13 | Outpatient (CLI) | payer OTHER | END 2023-02-22 18:14 | disposition critical access hospital (66) | LOC: EMS 18:13 | DX: R10.10 Upper abdominal pain, unspecified (principal) | CPT/HCPCS: A0425; A0429 ==

== ENCOUNTER 2023-02-22 18:40 | Emergency (ER) | payer OTHER ==
[~2023-02-22 18:40] MED LIST: KETOROLAC 15 MG/ML VIAL IVP STA; SODIUM CHLORIDE 0.9% 1,000 ML IV STA
--- NOTE | 2023-02-22 18:48 | ED Physician Documentation ---
PD HPI ABD PAIN - Stated complaint Stated Complaint: ABD PX - Chief complaint Chief Complaint: Abd Pain - History obtained from History obtained from: Patient, EMS - History of Present Illness Timing - duration: Hours (2) Timing - details: Abrupt onset Pain level max: 9 Pain level now: 9 Quality: Aching, Pain Location: RUQ, Epigastric Improved by: Meds (Motrin) Worsened by: Palpation Associated symptoms: Nausea, Vomiting. No: Fever, Hematemesis, Diarrhea, Constipation, Melena, Hematochezia, Dysuria, Hematuria Recently seen: Not recently seen - Additional information Additional information: Patient is a 23-year-old female who presents to the emergency department the right upper quadrant abdominal pain. She has had this pain intermittently for the past 3 months. She states that it occurs suddenly, usually last for 30 minutes to an hour and then resolves. Does not seem to be associated with any specific food. Had nausea and vomiting tonight. No fevers. No chills. EMS gave her IV fluids. She had a in October 2022 Has not had any other surgeries. No vaginal bleeding or discharge. She is not currently breast- feeding. No fevers. No chills. No cough. No congestion. Review of Systems Constitutional: denies: Fever, Chills Respiratory: denies: Dyspnea, Cough GI: reports: Nausea, Vomiting. 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 - Present Medications Home Medications: Ambulatory Orders Medication Instructions Recorded Confirmed HYDROcod/ACETAM 5/325 [[place] 5/325] 1 - 2 ea PO Q6H PRN #14 tablet 02/22/23 Ondansetron Odt [Zofran] 4 mg TL Q6H PRN #10 tablet 02/22/23 - Allergies Allergies/Adverse Reactions: Allergies Allergy/AdvReac Type Severity Reaction Status Date / Time aspirin Allergy Hives Verified 02/22/23 18:42 - Social History Does the pt smoke?: No Smoking Status: Never smoker Does the pt drink ETOH?: No Does the pt have substance abuse?: No - Immunizations Immunizations are current?: Yes - POLST Patient has POLST: No PD ED PE NORMAL - Vitals Vital signs reviewed: Yes - General General: Alert and oriented X 3, No acute distress - HEENT HEENT: PERRL, Moist mucous membranes - Neck Neck: Supple, no meningeal sign - Cardiac Cardiac: RRR, Strong equal pulses - Respiratory Respiratory: No respiratory distress, Clear bilaterally - Abdomen Abdomen: Soft, Non distended, Other (Tender palpation right upper quadrant. Positive Weller sign.) - Back Back: No CVA TTP, No spinal TTP - Derm Derm: Warm and dry - Extremities Extremities: No edema, No calf tenderness / cord - Neuro Neuro: Alert and oriented X 3 - Psych Psych: Normal mood, Normal affect Results - Vitals Vitals: Vital Signs - 24 hr 02/22/23 02/22/23 02/22/23 18:42 19:20 21:00 Temperature 36.8 C 36.1 C L 36.5 C Heart Rate 66 60 60 Respiratory 20 16 14 Rate Blood Pressure 122/61 113/70 112/60 O2 Saturation 100 100 100 Oxygen O2 Source Room air - Labs Labs: Laboratory Tests 02/22/23 02/22/23 02/22/23 19:04 19:04 19:55 WBC 12.2 H RBC 4.42 Hgb 12.1 Hct 39.5 MCV 89.4 MCH 27.4 MCHC 30.6 L RDW 14.4 Plt Count 354 MPV 11.2 H Neut # (Auto) 7.7 H Lymph # (Auto) 3.7 H [place] # (Auto) 0.5 Eos # (Auto) 0.2 Baso # (Auto) 0.0 Absolute Nucleated RBC 0.00 Nucleated RBC % 0.0 Sodium 137 Potassium 4.0 Chloride 104 Carbon Dioxide 24 Anion Gap 9.0 BUN 13 Creatinine 0.6 Estimated GFR (MDRD) 123 Glucose 90 Calcium 9.3 Total Bilirubin 0.4 AST 27 ALT 24 Alkaline Phosphatase 105 Total Protein 8.3 Albumin 4.7 Globulin 3.6 Albumin/Globulin Ratio 1.3 Lipase 51 Urine Color YELLOW Urine Clarity CLEAR Urine pH 6.0 Ur Specific [place] 1.020 Urine Protein NEGATIVE Urine Glucose (UA) NEGATIVE Urine Ketones NEGATIVE Urine Occult Blood MODERATE H Urine Nitrite NEGATIVE Urine Bilirubin NEGATIVE Urine Urobilinogen 0.2 (NORMAL) Ur Leukocyte Esterase NEGATIVE Urine RBC 0-5 Urine WBC 0-3 Ur Squamous Epith Cells FEW Squamous Urine Bacteria Rare Ur Microscopic Review INDICATED Urine Culture Comments NOT INDICATED Urine HCG, Qual NEGATIVE - Rads (name of study) Right upper quadrant ultrasound Relevant Findings:: Final report received, See rad report PD Medical Decision Making - ED course Complexity details: reviewed results, re-evaluated patient, considered differential, d/w patient ED course: 23-year-old female with right upper quadrant abdominal pain consistent with biliary colic. Pain well-controlled in the emergency department. Not vomiting. No fevers. Right upper quadrant ultrasound shows sludge and stones in the gallbladder but no acute cholecystitis. Normal ducts. I discussed the case with Dr. Bray, general surgery on-call, recommends follow-up in the office. Patient is comfortable with this plan. She states her pain is well enough controlled to go home. Will prescribe pain medications for home, return precautions given including worsening pain, fevers, vomiting. Patient counseled to follow a very low-fat diet. Patient is well-appearing, nontoxic. Patient counseled regarding signs and symptoms for which I believe and urgent re- evaluation would be necessary. Patient with good understanding of and agreement to plan and is comfortable going home at this time This document was made in part using voice recognition software. While efforts are made to proofread this document, sound alike and grammatical errors may occur. Departure - Departure Disposition: 01 Home, Self Care Clinical Impression: Biliary colic Condition: Good Instructions: ED Gallstone W Biliary Colic Follow-Up: Justus Bray MD [Provider Admit Priv/Credential] - Within 1 week Prescriptions: HYDROcod/ACETAM 5/325 [[place] 5/325] 1 - 2 ea PO Q6H PRN #14 tablet PRN Reason: Pain Ondansetron Odt [Zofran] 4 mg TL Q6H PRN #10 tablet PRN Reason: Nausea / Vomiting Comments: Your prescriptions were sent to [facility] in [place]. Your symptoms are consistent with biliary colic which is pain from your gallbladder. Please follow a very low-fat diet as any fatty foods will cause your gallbladder to contract and may cause a stone or sludge to try to pass which can be painful. Please return for uncontrolled pain, vomiting, fevers or other new or worrisome symptoms. Otherwise the surgery clinic should contact you on Friday. I spoke with Dr. Asa wilde. I am prescribing a short course of narcotic pain medication for you. These are potentially dangerous and addictive medications that should be used carefully. These medications may constipate you. Take an [id number] stool softener (docusate) twice daily with plenty of water while taking these medications. If you go 24 hours without a bowel movement, take [id number] miralax, per package instructions. Do not drink or drive while taking these medications. If you received narcotic or sedating medications while in the emergency department, do not drive for 24 hours. Store this medication in a safe, secure place and out of reach of children. It is a violation of federal law to give or sell this medication to another person or to use in a manner other than prescribed. The ED will not refill narcotic prescriptions, including prescriptions lost or stolen. To dispose of unwanted medications: 1. [facility] at [address] in [place] has a medication drop box. They accept prescription medications (in pill form) Friday through Friday 9:00 a.m. to 5:00 p.m. 2. The [facility] [employer] [facility] accepts prescription medications (in pill form only) for disposal year round. Call for more information. 3. Contact the [facility] for the next [facility] sponsored prescription drug collection event. , [phone], or [phone]; PROCEDURE: Abdomen Limited INDICATIONS: RUQ abd pain TECHNIQUE: Real-time focused scanning was performed of the abdomen, with image documentation. COMPARISONS: CT abdomen/pelvis 12/19/2021. FINDINGS: Liver: Liver is mildly enlarged in size measuring 17.7 cm craniocaudad and homogeneous in echotexture, diffusely mildly hyperechoic. Gallbladder: The gallbladder contains dependent layering mild sludge and several small stones but there is no evidence of abnormal gallbladder wall thickening or focal tenderness.. Biliary ducts: Intrahepatic bile ducts are non-dilated. Extrahepatic bile duct caliber measures 5.0 mm. Normal is 6-7 mm or less in diameter, or 10 mm or less post- cholecystectomy. Pancreas: Visualized portions of the pancreas are sonographically normal. Right kidney: Normal in size and echotexture. Right kidney measures 10.7 cm long. No hydronephrosis or nephrolithiasis. No solid masses. No complex renal cystic lesions which require follow-up. Aorta: Visualized aorta is normal in caliber at less than 3 cm. IVC: Intrahepatic inferior vena cava is patent. Miscellaneous: No free abdominal fluid. IMPRESSION: Mild sludge and several small mobile stones are present within the gallbladder lumen but there does not appear to be evidence of acute cholecystitis or current biliary distention. Mild hepatomegaly, mild diffuse fatty infiltration throughout the liver. Forms: PCP List Discharge Date/Time: 02/22/23 21:32
[2023-02-22 18:50] VITALS: O2SAT 100
[2023-02-22 19:12] LABS: BASOPHILS % (AUTO) 0.3 %; EOSINOPHILS # (AUTO) 0.2 10^3/uL (0.0-0.7); EOSINOPHILS % (AUTO) 1.6 %; HCT - HEMATOCRIT 39.5 % (37.0-47.0); HGB - HEMOGLOBIN 12.1 g/dL (12.0-16.0); LYMPHOCYTES # (AUTO) 3.7 10^3/uL (1.5-3.5); LYMPHOCYTES % (AUTO) 30.3 %; MEAN CORPUSCULAR HEMOGLOBIN 27.4 pg (27.0-31.0); MEAN CORPUSCULAR HGB CONC 30.6 g/dL (32.0-36.0); MEAN CORPUSCULAR VOLUME 89.4 fL (81.0-99.0); MEAN PLATELET VOLUME 11.2 fL (7.9-10.8); MONOCYTES # (AUTO) 0.5 10^3/uL (0.0-1.0); MONOCYTES % (AUTO) 4.3 %; NEUTROPHILS # (AUTO) 7.7 10^3/uL (1.5-6.6); NEUTROPHILS % (AUTO) 63.3 %; PLT - PLATELET COUNT 354 10^3/uL (130-450); RED BLOOD COUNT 4.42 10^6/uL (4.20-5.40); RED CELL DISTRIBUTION WIDTH 14.4 % (12.0-15.0); WHITE BLOOD COUNT 12.2 x10^3/uL (4.8-10.8)
[2023-02-22 19:29] LABS: ALBUMIN 4.7 g/dL (3.2-5.5); ALBUMIN/GLOBULIN RATIO 1.3 (1.0-2.2); BILIRUBIN,TOTAL 0.4 mg/dL (0.2-1.0); CALCIUM 9.3 mg/dL (8.5-10.3); CREATININE 0.6 mg/dL (0.6-1.3); TOTAL PROTEIN 8.3 g/dL (6.4-8.9)
[2023-02-22 20:07] LABS: BILIRUBIN,URINE NEGATIVE (NEGATIVE); GLUCOSE, URINE (UA) NEGATIVE (NEGATIVE); KETONES,URINE (UA) NEGATIVE (NEGATIVE); LEUKOCYTE ESTERASE, URINE NEGATIVE (NEGATIVE); NITRITE,URINE NEGATIVE (NEGATIVE); OCCULT BLOOD,URINE MODERATE (NEGATIVE); PROTEIN,URINE NEGATIVE (NEGATIVE); UROBILINOGEN,URINE 0.2 (NORMAL) E.U./dL (NORMAL)
[2023-02-22 20:19] LABS: CLARITY,URINE CLEAR (CLEAR); HCG UR QUAL NEGATIVE
[2023-02-22 20:33] LABS: BACTERIA,URINE Rare /HPF (None Seen); RBC,URINE 0-5 /HPF (0-5); SQUAMOUS EPITHELIAL CELL,UR FEW Squamous (<= Few); WBC,URINE 0-3 /HPF (0-5)
--- NOTE | 2023-02-22 20:48 | Ultrasound Report ---
PROCEDURE: Abdomen Limited INDICATIONS: RUQ abd pain TECHNIQUE: Real-time focused scanning was performed of the abdomen, with image documentation. COMPARISONS: CT abdomen/pelvis 12/19/2021. FINDINGS: Liver: Liver is mildly enlarged in size measuring 17.7 cm craniocaudad and homogeneous in echotextur e, diffusely mildly hyperechoic. Gallbladder: The gallbladder contains dependent layering mild sludge and several small stones but the re is no evidence of abnormal gallbladder wall thickening or focal tenderness.. Biliary ducts: Intrahepatic bile ducts are non-dilated. Extrahepatic bile duct caliber measures 5.0 mm. Normal is 6-7 mm or less in diameter, or 10 mm or less post-cholecystectomy. Pancreas: Visualized portions of the pancreas are sonographically normal. Right kidney: Normal in size and echotexture. Right kidney measures 10.7 cm long. No hydronephrosis or nephrolithiasis. No solid masses. No complex renal cystic lesions which require follow-up. Aorta: Visualized aorta is normal in caliber at less than 3 cm. IVC: Intrahepatic inferior vena cava is patent. Miscellaneous: No free abdominal fluid. IMPRESSION: Mild sludge and several small mobile stones are present within the gallbladder lumen but there does n ot appear to be evidence of acute cholecystitis or current biliary distention. Mild hepatomegaly, mil d diffuse fatty infiltration throughout the liver. Reviewed by: Jann Finnegan MD on 02/22/2023 8:47 PM PST Approved by: Jann Finnegan MD on 02/22/2023 8:47 PM PST Station ID: [id number]
[2023-02-22] MEDS ORDERED: ONDANSETRON ODT 4 MG Prepack 2 TL PRN (20:59)
[2023-02-22] MEDS ORDERED: HYDROcod/ACET 5/325 Prepack 4 PO STA (20:59)
[2023-02-22 21:20] VITALS: BP 112/60
== END 2023-02-22 21:32 | disposition home or self-care (01) ==
LOC: EDUNIT# → ED 18:40
DX: K80.70 Calculus of gallbladder and bile duct without cholecystitis without obstruction (principal)
CPT/HCPCS: 36415; 80053; 81001; 81003; 81025; 83690; 85025; 87086; 96374; 99284

== ENCOUNTER 2023-03-28 23:53 | Outpatient (CLI) | payer OTHER | END 2023-03-28 23:59 | disposition critical access hospital (66) | LOC: EMS 23:53 | DX: R10.11 Right upper quadrant pain (principal); R10.811 Right upper quadrant abdominal tenderness | CPT/HCPCS: A0425; A0427 ==

== ENCOUNTER 2023-03-29 00:34 | Emergency (ER) | payer OTHER ==
[2023-03-29] MEDS ORDERED: MORPHINE 10 MG/ML VIAL IVP STA (00:37)
[2023-03-29 00:44] VITALS: BP 102/82
[2023-03-29 00:59] LABS: BASOPHILS % (AUTO) 0.2 %; EOSINOPHILS # (AUTO) 0.2 10^3/uL (0.0-0.7); EOSINOPHILS % (AUTO) 1.9 %; HCT - HEMATOCRIT 35.6 % (37.0-47.0); HGB - HEMOGLOBIN 11.3 g/dL (12.0-16.0); LYMPHOCYTES % (AUTO) 33.5 %; MEAN CORPUSCULAR HEMOGLOBIN 27.3 pg (27.0-31.0); MEAN CORPUSCULAR HGB CONC 31.7 g/dL (32.0-36.0); MEAN PLATELET VOLUME 10.7 fL (7.9-10.8); MONOCYTES # (AUTO) 0.5 10^3/uL (0.0-1.0); MONOCYTES % (AUTO) 5.8 %; NEUTROPHILS # (AUTO) 5.2 10^3/uL (1.5-6.6); NEUTROPHILS % (AUTO) 58.4 %; PLT - PLATELET COUNT 329 10^3/uL (130-450); RED BLOOD COUNT 4.14 10^6/uL (4.20-5.40); RED CELL DISTRIBUTION WIDTH 14.6 % (12.0-15.0); WHITE BLOOD COUNT 8.8 x10^3/uL (4.8-10.8)
[2023-03-29 01:19] LABS: ALBUMIN 4.2 g/dL (3.2-5.5); ALBUMIN/GLOBULIN RATIO 1.4 (1.0-2.2); BILIRUBIN,TOTAL 0.7 mg/dL (0.2-1.0); CALCIUM 9.1 mg/dL (8.5-10.3); CREATININE 0.6 mg/dL (0.6-1.3); POTASSIUM 3.7 mmol/L (3.5-4.5); TOTAL PROTEIN 7.3 g/dL (6.4-8.9)
[2023-03-29 01:52] LABS: BILIRUBIN,URINE NEGATIVE (NEGATIVE); GLUCOSE, URINE (UA) NEGATIVE (NEGATIVE); KETONES,URINE (UA) NEGATIVE (NEGATIVE); LEUKOCYTE ESTERASE, URINE NEGATIVE (NEGATIVE); NITRITE,URINE NEGATIVE (NEGATIVE); OCCULT BLOOD,URINE NEGATIVE (NEGATIVE); PH,URINE 6.5 PH (5.0-7.5); PROTEIN,URINE NEGATIVE (NEGATIVE); UROBILINOGEN,URINE 0.2 (NORMAL) E.U./dL (NORMAL)
[2023-03-29 02:06] LABS: CLARITY,URINE CLEAR (CLEAR); HCG UR QUAL NEGATIVE
--- NOTE | 2023-03-29 02:28 | ED Physician Documentation ---
History of Present Illness - Stated complaint Stated Complaint: GALLSTONE PAIN - Chief complaint Chief Complaint: Abd Pain - History obtained from History obtained from: Patient - Additonal information Additional information: 23yF with pmh gallstones, psh c section p/w RUQ pain radiating to back about an hour after eating hot cheetos tonight. patient denies fever/chills, n/v/d urinary sx. pain has now tapered off. Review of Systems Constitutional: denies: Fever, Chills Cardiac: denies: Chest pain / pressure Respiratory: denies: Dyspnea GI: reports: Abdominal Pain. 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 - Present Medications Home Medications: Ambulatory Orders Medication Instructions Recorded Confirmed Oxycodone HCl/Acetaminophen 1 each PO Q4H PRN #8 tablet 03/29/23 [Percocet 5-325 mg Tablet] - Allergies Allergies/Adverse Reactions: Allergies Allergy/AdvReac Type Severity Reaction Status Date / Time aspirin Allergy Hives Verified 03/29/23 00:39 - Social History Does the pt smoke?: No Smoking Status: Never smoker Does the pt drink ETOH?: No Does the pt have substance abuse?: No - Immunizations Immunizations are current?: Yes - POLST Patient has POLST: No PD ED PE NORMAL - Vitals Vital signs reviewed: Yes - General General: Alert and oriented X 3, No acute distress, Well developed/nourished - HEENT HEENT: Atraumatic, PERRL, EOMI - Neck Neck: Supple, no meningeal sign - Cardiac Cardiac: RRR - Respiratory Respiratory: No respiratory distress, Clear bilaterally - Abdomen Abdomen: Non tender, Non distended - Back Back: No CVA TTP - Derm Derm: Normal color, Warm and dry Results - Vitals Vitals: Vital Signs - 24 hr 03/29/23 00:40 Temperature 36.8 C Heart Rate 76 Respiratory 16 Rate Blood Pressure 102/82 H O2 Saturation 98 Oxygen O2 Source Room air - Labs Labs: Laboratory Tests 03/29/23 03/29/23 03/29/23 00:54 00:54 01:46 WBC 8.8 RBC 4.14 L Hgb 11.3 L Hct 35.6 L MCV 86.0 MCH 27.3 MCHC 31.7 L RDW 14.6 Plt Count 329 MPV 10.7 Neut # (Auto) 5.2 Lymph # (Auto) 3.0 [place] # (Auto) 0.5 Eos # (Auto) 0.2 Baso # (Auto) 0.0 Absolute Nucleated RBC 0.00 Nucleated RBC % 0.0 Sodium 137 Potassium 3.7 Chloride 105 Carbon Dioxide 25 Anion Gap 7.0 BUN 13 Creatinine 0.6 Estimated GFR (MDRD) 123 Glucose 109 H Calcium 9.1 Total Bilirubin 0.7 AST 51 H ALT 35 Alkaline Phosphatase 97 Total Protein 7.3 Albumin 4.2 Globulin 3.1 Albumin/Globulin Ratio 1.4 Lipase 38 Urine Color YELLOW Urine Clarity CLEAR Urine pH 6.5 Ur Specific Gem 1.025 Urine Protein NEGATIVE Urine Glucose (UA) NEGATIVE Urine Ketones NEGATIVE Urine Occult Blood NEGATIVE Urine Nitrite NEGATIVE Urine Bilirubin NEGATIVE Urine Urobilinogen 0.2 (NORMAL) Ur Leukocyte Esterase NEGATIVE Ur Microscopic Review NOT INDICATED Urine Culture Comments NOT INDICATED Urine HCG, Qual NEGATIVE PD Medical Decision Making - ED course ED course: 23yF with pmh gallstones presents with RUQ pain after eating spicy cheetos tonight, now resolving. abdominal exam was benign. Labwork noncontributory, th ough she has some mild chronic anemia. [facility] I have low suspicion of cholecystitis at this time given benign abdominal exam and benign labs. strict return precautions discussed. pain meds sent to pharmacy. plan to f/u surgery clinic as needed. Departure - Departure Disposition: 01 Home, Self Care Clinical Impression: Colic, biliary, Abdominal pain Condition: Stable Instructions: ED Gallstone W Biliary Colic Follow-Up: Renny Castro MD [Provider Admit Priv/Credential] - Prescriptions: Oxycodone HCl/Acetaminophen [Percocet 5-325 mg Tablet] 1 each PO Q4H PRN #8 tablet PRN Reason: Pain >8 Comments: You were seen in the emergency department for abdominal pain likely caused by gallstones. Electronic prescription for pain meds sent to your pharmacy. Do not use when driving or operating heavy machinery. Dispose of any unused pills at your local police station. This medication may cause constipation. If you are prone to constipation then please take with ykia-ymd-[id number] sennadocusate and MiraLAX. Please follow-up with general surgery clinic and return to the emergency department if you have any new or worsening symptoms or other concerns.
[2023-03-29 02:41] VITALS: O2SAT 100
== END 2023-03-29 02:34 | disposition home or self-care (01) ==
LOC: EDUNIT# → ED 00:34
DX: K80.50 Calculus of bile duct without cholangitis or cholecystitis without obstruction (principal); R10.84 Generalized abdominal pain
CPT/HCPCS: 36415; 80053; 81001; 81003; 81025; 83690; 85025; 87086; 99283; 99284

== ENCOUNTER 2023-03-29 20:28 | Emergency (ER) | payer OTHER ==
[2023-03-29 20:40] VITALS: BP 121/68; O2SAT 100
--- NOTE | 2023-03-29 20:40 | ED Physician Documentation ---
PD HPI ABD PAIN - Stated complaint Stated Complaint: LT SIDE ABD PX - Chief complaint Chief Complaint: Abd Pain - History obtained from History obtained from: Patient - Additional information Additional information: HPI from patient. Patient was treated and released from this ED in the very early hours of this morning (approximately 21 hours ago) for the same symptoms. Patient says she has known gallstones which have been causing episodic symptoms and for which she is scheduled to have cholecystectomy next month. She was evaluated in this ED yesterday for right upper quadrant pain rating around the right flank to her right paralumbar region. She says she received fentanyl and morphine with resolution of the pain. She was prescribed percocet but she says she forgot to roller picker the rx until it was too late (pharmacy had closed). Tonight she had another episode of upper abdominal pain although she notes it is more pronounced in the midline and LUQ. Does not radiate. Denies n/v, denies fev er. Patient drove to ED. She says the pain is already subsiding and that she is mostly hoping to have US as one was not performed on the earlier visit today (US was not in house). 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 - Present Medications Home Medications: Ambulatory Orders Medication Instructions Recorded Confirmed Esomeprazole Magnesium 20 mg PO DAILY #14 tab 03/29/23 Lidocaine Viscous 2% [Xylocaine 5 ml PO Q4H PRN #100 ml 03/29/23 Viscous 2%] Oxycodone HCl/Acetaminophen 1 each PO Q4H PRN #8 tablet 03/29/23 [Percocet 5-325 mg Tablet] - Allergies Allergies/Adverse Reactions: Allergies Allergy/AdvReac Type Severity Reaction Status Date / Time aspirin Allergy Hives Verified 03/29/23 21:15 - Social History Does the pt smoke?: No Smoking Status: Never smoker Does the pt drink ETOH?: No Does the pt have substance abuse?: No - Immunizations Immunizations are current?: Yes - POLST Patient has POLST: No PD ED PE NORMAL - Vitals Vital signs reviewed: Yes - General General: Alert and oriented X 3, No acute distress, Well developed/nourished - Abdomen Abdomen: Soft, Non tender - Back Back: No CVA TTP Results - Vitals Vitals: Vital Signs - 24 hr 03/29/23 20:32 Temperature 36.7 C Heart Rate 81 Respiratory 16 Rate Blood Pressure 121/68 O2 Saturation 100 Oxygen O2 Source Room air - Rads (name of study) RUQ US Relevant Findings:: Prelim report reviewed, See rad report PD Medical Decision Making - ED course Complexity details: reviewed results, re-evaluated patient, considered differential, d/w patient ED course: Patient is in NAD and is reporting improvement in the episode of pain she is having earlier tonight prior to this evaluation without any specific intervention. I reviewed the results of the tests performed on the previous visit earlier today and there are no remarkable/concerning findings (specifically her white blood cell count was normal, LFTs unremarkable as was the lipase. Urine test was negative and the urinalysis was unremarkable, as well). All this being considered, there does not seem to be an indication for repeating any of these tests at this time from an emergent basis. A right upper quadrant ultrasound is ordered; she does say that her pain is more epigastric and left upper quadrant and right upper quadrant tonight, but seems to be indicating that some of her previous episodes that were attributed to biliary colic did have a left upper quadrant component. She is given p.o. Maalox 30 mL mixed with 5 mL of viscous lidocaine and reports some degree of improvement with this intervention. US shows 'mild fatty infiltration within the liver, nonobstructive gallstones ar e seen within the gallbladder lumen as was previously the case. no biliary distention has developed" (per radiologist's report). Results d/w patient, return precautions reviewed. She is given a take-home pack of percocet (patient drove self to ED, has rx waiting for morning pickup at [facility] that was prescribed on previous ED visit). Results of US discussed, return precautions reviewed. Departure - Departure Disposition: 01 Home, Self Care Clinical Impression: Abdominal pain Condition: Good Instructions: ED Abdominal Pain Female Non-Specific Abdominal Pain Follow-Up: INDIO TRAN MD [Primary Care Provider] - Prescriptions: Esomeprazole Magnesium 20 mg PO DAILY #14 tab Lidocaine Viscous 2% [Xylocaine Viscous 2%] 5 ml PO Q4H PRN #100 ml PRN Reason: Abdominal Pain Comments: I am electronically submitting prescriptions for the lidocaine (numbing agent) and esomeprazole (acid-blocking medication) to the [facility] pharmacy in [place]. Your ultrasound once again showed a number of gallstones as well as sludge in the gallbladder, but no evidence that these are causing your symptoms tonight (such as dilated gallbladder duct, swollen gallbladder). Forms: PCP List Discharge Date/Time: 03/29/23 22:00
[2023-03-29] MEDS: LIDOCAINE VISCOUS 2% 15 ML ORAL SYRINGE MM STA (21:12)
[2023-03-29] MEDS: MAG HYDROX/AL HYDROX/SIMETH 30 ML UDC PO STA (21:12)
[2023-03-29] MEDS: oxyCODONE/ACET 5/325 Prepack 4 PO STA (21:40)
--- NOTE | 2023-03-29 21:59 | Ultrasound Report ---
PROCEDURE: Abdomen Limited INDICATIONS: upper abdominal pain TECHNIQUE: Real-time focused scanning was performed of the abdomen, with image documentation. COMPARISONS: 02/22/2023 comparison abdominal Limited ultrasound. FINDINGS: Liver: Liver is normal in size and homogeneous in echotexture, diffusely mildly hyperechoic consiste nt with fatty infiltration. Gallbladder: Again seen are nonobstructive stones and there is no evidence of acute cholecystitis or adjacent biliary distention.. Biliary ducts: Intrahepatic bile ducts are non-dilated. Extrahepatic bile duct caliber measures 3.0 mm. Normal is 6-7 mm or less in diameter, or 10 mm or less post-cholecystectomy. Pancreas: Visualized portions of the pancreas are sonographically normal. Right kidney: Normal in size and echotexture. Right kidney measures 10.4 cm long. No hydronephrosis or nephrolithiasis. No solid masses. No complex renal cystic lesions which require follow-up. Aorta: Visualized aorta is normal in caliber at less than 3 cm. IVC: Intrahepatic inferior vena cava is patent. Miscellaneous: No free abdominal fluid. IMPRESSION: Mild fatty infiltration within the liver. Nonobstructive gallstones are seen within the gallbladder l umen as was previously the case. No biliary distention has developed. Reviewed by: Jann Finnegan MD on 03/29/2023 9:58 PM PST Approved by: Jann Finnegan MD on 03/29/2023 9:58 PM PST Station ID: [id number]
== END 2023-03-29 22:00 | disposition home or self-care (01) ==
LOC: ED 20:28
DX: K80.50 Calculus of bile duct without cholangitis or cholecystitis without obstruction (principal); R10.12 Left upper quadrant pain; R11.0 Nausea; R10.84 Generalized abdominal pain
CPT/HCPCS: 36415; 76705; 80053; 81003; 81025; 83690; 85025; 99283; 99284; A9270; 81001; 87086

== ENCOUNTER 2023-04-20 09:37 | Emergency (ER) | payer OTHER ==
--- NOTE | 2023-04-20 10:45 | ED Physician Documentation ---
History of Present Illness - Stated complaint Stated Complaint: DIZZY,ITCHY - Chief complaint Chief Complaint: Abd Pain - History obtained from History obtained from: Patient - History of Present Illness Timing: Enter time (0000), Last night - Additonal information Additional information: Nessa San is a 23-year-old female who has a history of cholelithiasis and she has had a gallbladder attack beginning at about midnight last night. She had some vomiting associated with this she took some oxycodone developed a bit of itching from her face down her arms that has now resolved. She continues to have some mild epigastric pain which she believes is from retching. She has not had a fever. She has not had a gallbladder attack since her initial visit and she has an appointment to have her gallbladder out on the of this month. She does not feel like she is otherwise ill. Review of Systems Constitutional: denies: Fever, Chills, Myalgias Ears: denies: Ear pain Throat: denies: Sore throat Cardiac: denies: Chest pain / pressure Respiratory: denies: Dyspnea, Cough GI: reports: Abdominal Pain, Nausea, Vomiting. denies: Constipation, Diarrhea : denies: Dysuria, Frequency Skin: reports: Other (itching from the face/neck upper ext now resolved started within minutes of taking oxycodone.). 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 - Present Medications Home Medications: Ambulatory Orders Medication Instructions Recorded Confirmed Oxycodone HCl/Acetaminophen 1 each PO Q4H PRN #8 tablet 03/29/23 04/20/23 [Percocet 5-325 mg Tablet] Magnesium 1 tab PO DAILY 04/20/23 04/20/23 traMADol [Ultram] 50 - 100 mg PO Q6H PRN #20 tablet 04/20/23 - Allergies Allergies/Adverse Reactions: Allergies Allergy/AdvReac Type Severity Reaction Status Date / Time aspirin Allergy Hives Verified 03/29/23 21:15 oxycodone Allergy Rash Verified 04/20/23 10:18 - Social History Does the pt smoke?: No Smoking Status: Never smoker Does the pt drink ETOH?: No Does the pt have substance abuse?: No - Immunizations Immunizations are current?: Yes - POLST Patient has POLST: No PD ED PE NORMAL - Vitals Vital signs reviewed: Yes (wide pulse pressure) - General General: Alert and oriented X 3, No acute distress, Well developed/nourished - HEENT HEENT: Atraumatic, PERRL, EOMI - Neck Neck: Supple, no meningeal sign, No bony TTP - Cardiac Cardiac: RRR, No murmur - Respiratory Respiratory: No respiratory distress, Clear bilaterally - Abdomen Abdomen: Normal bowel sounds, Soft, Non distended, No organomegaly, Other (minimal tenderness to the mid epigastrium without RUQ tenderness and negative Weller's sign. 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, No motor deficit, No sensory deficit, Normal speech Eye Opening: Spontaneous Motor: Obeys Commands Verbal: Oriented GCS Score: 15 - Psych Psych: Normal mood, Normal affect Results - Vitals Vitals: Vital Signs - 24 hr 04/20/23 04/20/23 09:48 11:09 Temperature 36 C L Heart Rate 60 72 Respiratory 16 18 Rate Blood Pressure 107/45 L 116/72 O2 Saturation 99 100 Oxygen O2 Source Room air PD Medical Decision Making - ED course Complexity details: considered differential, d/w patient ED course: 23-year-old female with a history of known gallstones has had gallbladder attack last in February she presents now with a resolved attack. She had taken some oxycodone and developed itching shortly after taking it that progressed and now has resolved without specific treatment. Today we have given her a dose of Mylanta for some residual abdominal discomfort. She does have an appointment to get her gallbladder out on the of this month. I have asked the patient to return to the emergency department if she has persistence of or worsening of her epigastric or right upper quadrant abdominal pain. I explained to her the nature of cholecystitis and reasons for returning to the emergency department. Departure - Departure Disposition: 01 Home, Self Care Clinical Impression: Biliary colic Instructions: ED Gallstone W Biliary Colic Follow-Up: INDIO TRAN MD [Primary Care Provider] - Prescriptions: traMADol [Ultram] 50 - 100 mg PO Q6H PRN #20 tablet PRN Reason: Pain Comments: Nessa, today it looks like you have had another gallbladder attack and it looks like this has resolved. It also looks like you are sensitive to the oxycodone and I recommend you not take this. There is always a chance of cholecystitis or an inflammation of the gallbladder itself and if this is the case you will have persistence or worsening of your pain throughout the day. This is a reason to return to the emergency department. If you have another attack between now and the of this month when you get your gallbladder out I have E scribed some tramadol to the [facility] in [place]. Use this as an alternative to the oxycodone for pain control. Forms: PCP List Discharge Date/Time: 04/20/23 11:10
[2023-04-20] MEDS: MAG HYDROX/AL HYDROX/SIMETH 30 ML UDC PO STA (10:53)
[2023-04-20 11:15] VITALS: BP 116/72; O2SAT 100
== END 2023-04-20 11:10 | disposition home or self-care (01) ==
LOC: ED 09:37
DX: K80.50 Calculus of bile duct without cholangitis or cholecystitis without obstruction (principal)
CPT/HCPCS: 99282; 99284; A9270

== ENCOUNTER 2023-05-27 11:13 | Outpatient (CLI) | payer OTHER ==
--- NOTE | 2023-05-27 18:56 | Ultrasound Report ---
PROCEDURE: Soft Tissue Head or Neck INDICATIONS: GOITER TECHNIQUE: Real-time scanning was performed of the thyroid gland, with image documentation. COMPARISON: None FINDINGS: Right: Thyroid lobe measures 3.9 x 1.4 x 1.5 cm, and is homogeneous in echotexture. Left: Thyroid lobe measures 3.4 x 1 x 1.5 cm, and is homogenous in echotexture. Isthmus: 0.2 cm thick. No sonographic evidence of a thyroid nodule. IMPRESSION: Normal size and sonographic appearance of the thyroid gland with no nodule. Reviewed by: Kasey Whelan MD on 05/27/2023 6:55 PM PDT Approved by: Kasey Whelan MD on 05/27/2023 6:55 PM PDT Station ID: [id number]
== END 2023-05-27 11:14 | disposition home or self-care (01) ==
LOC: DI 11:13
PROVIDERS: ATTEND Nurse Practitioner Family
DX: E04.9 Nontoxic goiter, unspecified (principal)

== ENCOUNTER 2023-07-31 08:05 | Emergency (ER) | payer OTHER ==
--- NOTE | 2023-07-31 08:22 | ED Physician Documentation ---
PD HPI GI BLEED - Stated complaint Stated Complaint: N, VALIENTE, - Chief complaint Chief Complaint: Abd Pain - History obtained from History obtained from: Patient - History of Present Illness Timing - onset: How many days ago (2-3) Timing - duration: Days (2-3 days of BRBPR with BMs, with tenderness to wiping. States the stool is separete from the blood, though slight intermix. Had noted some small clots of blood with BM.) Timing - details: Abrupt onset, Still present (she noted larger amount of blood yesteday and today. Associated feeling of fatigue and weakness, so concerned.) Associated symptoms: BRBPR Contributing factors: Other (he had been on ZOloft for mood post few years ago, but stopped it 4-5 months ago as she thought was contributing to weight gain and fatigue.). No: Sick contact, Bad food Similar symptoms before: Diagnosis (hemorrhoids when was similar though more blood currently.) Recently seen: Clinic (had been to [facility] for fatigue and weight gaining and had some basic labs, told anemic. No other interventions.) Review of Systems Constitutional: reports: Myalgias, Fatigue. denies: Fever, Chills GI: reports: Abdominal Pain (intermittent cramping lower abd.). denies: Nausea, Vomiting, Diarrhea Psychiatric: reports: Depressed. denies: Suicidal Endocrine: reports: Weight gain. 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 - Present Medications Home Medications: Ambulatory Orders Medication Instructions Recorded Confirmed Docusate Sodium 100Mg Capsule 100 mg PO DAILY #20 cap 07/31/23 [Colace 100Mg Capsule] Ferrous Gluconate 324 mg PO DAILY #30 tablet 07/31/23 Hydrocortisone Supp [Anusol-Hc] 25 mg KS DAILY #7 supp 07/31/23 Cholecalciferol [Vitamin D3] 5,000 unit PO DAILY #60 cap 08/01/23 - Allergies Allergies/Adverse Reactions: Allergies Allergy/AdvReac Type Severity Reaction Status Date / Time aspirin Allergy Hives Verified 07/31/23 08:16 oxycodone Allergy Rash Verified 07/31/23 08:16 - Social History Does the pt smoke?: No Smoking Status: Former smoker Does the pt drink ETOH?: No Does the pt have substance abuse?: No - Immunizations Immunizations are current?: Yes - POLST Patient has POLST: No PD ED PE NORMAL - Vitals Vital signs reviewed: Yes - General General: Alert and oriented X 3, No acute distress, Well developed/nourished - Neck Neck: Supple, no meningeal sign, No adenopathy - Cardiac Cardiac: RRR, No murmur - Respiratory Respiratory: Clear bilaterally - Abdomen Abdomen: Normal bowel sounds, Soft, Non tender, Non distended - Rectal Rectal: Deferred - Derm Derm: Normal color, Warm and dry - Extremities Extremities: No edema - Neuro Neuro: Alert and oriented X 3, No motor deficit, Normal speech Results - Vitals Vitals: Oxygen O2 Source Room air - Labs Labs: Laboratory Tests 07/31/23 07/31/23 07/31/23 08:25 08:50 08:50 WBC 7.3 RBC 4.28 Hgb 11.7 L Hct 36.3 L MCV 84.8 MCH 27.3 MCHC 32.2 RDW 14.6 Plt Count 297 MPV 11.6 H Neut # (Auto) 4.2 Lymph # (Auto) 2.7 [place] # (Auto) 0.3 Eos # (Auto) 0.1 Baso # (Auto) 0.0 Absolute Nucleated RBC 0.00 Nucleated RBC % 0.0 Sodium 138 Potassium 3.8 Chloride 107 Carbon Dioxide 25 Anion Gap 6.0 BUN 17 Creatinine 0.7 Estimated GFR (MDRD) 103 Glucose 100 Calcium 9.3 Phosphorus Magnesium Iron TIBC % Saturation Transferrin Total Bilirubin 0.7 AST 15 ALT 13 Alkaline Phosphatase 79 Total Protein 7.7 Albumin 4.4 Globulin 3.3 Albumin/Globulin Ratio 1.3 Lipase 23 Vitamin B12 Vitamin D 25-Hydroxy TSH Urine Color YELLOW Urine Clarity CLEAR Urine pH 6.5 Ur Specific Dixon 1.020 Urine Protein NEGATIVE Urine Glucose (UA) NEGATIVE Urine Ketones NEGATIVE Urine Occult Blood NEGATIVE Urine Nitrite NEGATIVE Urine Bilirubin NEGATIVE Urine Urobilinogen 0.2 (NORMAL) Ur Leukocyte Esterase NEGATIVE Ur Microscopic Review NOT INDICATED Urine Culture Comments NOT INDICATED Urine HCG, Qual NEGATIVE 07/31/23 07/31/23 08:55 08:55 WBC RBC Hgb Hct MCV MCH MCHC RDW Plt Count MPV Neut # (Auto) Lymph # (Auto) [place] # (Auto) Eos # (Auto) Baso # (Auto) Absolute Nucleated RBC Nucleated RBC % Sodium Potassium Chloride Carbon Dioxide Anion Gap BUN Creatinine Estimated GFR (MDRD) Glucose Calcium Phosphorus 4.0 Magnesium 2.0 Iron 41 L TIBC 454 H % Saturation 9 L Transferrin 324 Total Bilirubin AST ALT Alkaline Phosphatase Total Protein Albumin Globulin Albumin/Globulin Ratio Lipase Vitamin B12 427 Vitamin D 25-Hydroxy 8.0 L TSH 2.30 Urine Color Urine Clarity Urine pH Ur Specific Dixon Urine Protein Urine Glucose (UA) Urine Ketones Urine Occult Blood Urine Nitrite Urine Bilirubin Urine Urobilinogen Ur Leukocyte Esterase Ur Microscopic Review Urine Culture Comments Urine HCG, Qual PD Medical Decision Making - ED course Complexity details: reviewed results (CT without acute process to explain GI bleeding. ), considered differential (BRBPR with tenderness wiping seems likely hemorrhoid. Deferred rectal exam as will treat empirically. She is concerned about other causes (with also fatigue, etc) e.g. colon CA, IBD, crohns, etc. Can get some imaging CT but is not highly sensitive, so we talked about follow up colonoscopy as well. ), d/w patient ED course: regarding her concern of cancer, IBD, etc, it is not unreasonable with recurrent BRBPR, though most likely hemorrhoids. REctal deferred since will treat as that and presence of hemorrhoids would not preclude a higher bleed source. Can get labs regarding fatigue and weight, mood, such as sugar, TSH, blood count, lytes. These were tested and showed a low iron level with mild anemia, low vitamin D. Else okay. I suggested with her to talk with PCP about a different SSRI/SNRI since she felt Zoloft was not for her but she still has symtoms that could be depression. To follow up with surgery re: colonscopy. Vitamin D level did not come back in the timeframe of her ED visit and was an added script. Presume getting it prior to picking up other meds. Departure - Departure Disposition: 01 Home, Self Care Clinical Impression: BRBPR (bright red blood per rectum), Vitamin D deficiency Fatigue Qualifiers: Fatigue type: unspecified Qualified Code(s): R53.83 - Other fatigue Anemia Qualifiers: Anemia type: iron deficiency Iron deficiency anemia type: unspecified iron deficiency Qualified Code(s): D50.9 - Iron deficiency anemia, unspecified Condition: Stable Record reviewed to determine appropriate education?: Yes Follow-Up: INDIO TRAN MD [Primary Care Provider] - Prescriptions: Hydrocortisone Supp [Anusol-Hc] 25 mg KS DAILY #7 supp Docusate Sodium 100Mg Capsule [Colace 100Mg Capsule] 100 mg PO DAILY #20 cap Ferrous Gluconate 324 mg PO DAILY #30 tablet Comments: Your CT scan does not show any acute obvious abnormalities. That said it is not a complete workup for lower intestinal bleeding. Common recommendation would be a colonoscopy as well to evaluate for lesions or inflammatory conditions such as ulcerative colitis or Crohn's. Your description of the bleeding would be suggestive of hemorrhoids but cannot exclude other sources as well. Use a stool softener and hemorrhoid suppositories daily for the next 5-7 days. I would recommend following up with general surgery for discussion about colonoscopy. Meanwhile you are mildly anemic and your iron levels are low. I would suggest an iron supplement. We did check your blood count, chemistry panel, liver and kidney enzymes, blood sugar, thyroid screen and also vitamins D and B12. These are in the normal range. Other considerations for fatigue etc. could be mood related. Discussed with your primary care the idea of a different antidepressant than the Zoloft you had been on and see if that may help with some of the symptoms you are having in addition to obviously treating on the presumed hemorrhoids it is and iron deficiency. I sent prescriptions to your primary [facility] pharmacy. Forms: PCP List, Activity restrictions Discharge Date/Time: 07/31/23 11:23
[2023-07-31 08:58] LABS: BASOPHILS % (AUTO) 0.4 %; EOSINOPHILS # (AUTO) 0.1 10^3/uL (0.0-0.7); HCT - HEMATOCRIT 36.3 % (37.0-47.0); HGB - HEMOGLOBIN 11.7 g/dL (12.0-16.0); LYMPHOCYTES # (AUTO) 2.7 10^3/uL (1.5-3.5); LYMPHOCYTES % (AUTO) 36.5 %; MEAN CORPUSCULAR HEMOGLOBIN 27.3 pg (27.0-31.0); MEAN CORPUSCULAR HGB CONC 32.2 g/dL (32.0-36.0); MEAN CORPUSCULAR VOLUME 84.8 fL (81.0-99.0); MEAN PLATELET VOLUME 11.6 fL (7.9-10.8); MONOCYTES # (AUTO) 0.3 10^3/uL (0.0-1.0); MONOCYTES % (AUTO) 3.9 %; NEUTROPHILS # (AUTO) 4.2 10^3/uL (1.5-6.6); NEUTROPHILS % (AUTO) 58.1 %; PLT - PLATELET COUNT 297 10^3/uL (130-450); RED BLOOD COUNT 4.28 10^6/uL (4.20-5.40); RED CELL DISTRIBUTION WIDTH 14.6 % (12.0-15.0); WHITE BLOOD COUNT 7.3 x10^3/uL (4.8-10.8)
[2023-07-31 09:02] LABS: BILIRUBIN,URINE NEGATIVE (NEGATIVE); GLUCOSE, URINE (UA) NEGATIVE (NEGATIVE); KETONES,URINE (UA) NEGATIVE (NEGATIVE); LEUKOCYTE ESTERASE, URINE NEGATIVE (NEGATIVE); NITRITE,URINE NEGATIVE (NEGATIVE); OCCULT BLOOD,URINE NEGATIVE (NEGATIVE); PH,URINE 6.5 PH (5.0-7.5); PROTEIN,URINE NEGATIVE (NEGATIVE); UROBILINOGEN,URINE 0.2 (NORMAL) E.U./dL (NORMAL)
[2023-07-31 09:08] LABS: CLARITY,URINE CLEAR (CLEAR)
[2023-07-31 09:09] LABS: HCG UR QUAL NEGATIVE
[2023-07-31 09:11] LABS: ALBUMIN 4.4 g/dL (3.2-5.5); ALBUMIN/GLOBULIN RATIO 1.3 (1.0-2.2); BILIRUBIN,TOTAL 0.7 mg/dL (0.2-1.0); CALCIUM 9.3 mg/dL (8.5-10.3); CREATININE 0.7 mg/dL (0.6-1.3); POTASSIUM 3.8 mmol/L (3.5-4.5); TOTAL PROTEIN 7.7 g/dL (6.4-8.9)
[2023-07-31] MEDS ORDERED: iohexoL-300 100 ML VIAL ONE (09:23)
[2023-07-31 09:38] LABS: THYROID STIMULATING HORMONE 2.3 uIU/mL (0.34-5.60)
--- NOTE | 2023-07-31 10:15 | CT Report ---
PROCEDURE: Abdomen/Pelvis W INDICATIONS: lower abd cramping and BRBPR CONTRAST: IV 100 mL Omnipaque 300 TECHNIQUE: After the administration of intravenous contrast, a CT scan of the abdomen and pelvis was performed. Images were recorded and evaluated at appropriate window settings. Reformats: coronal and sagittal. F or radiation dose reduction, the following was used: automated exposure control, adjustment of mA and /or kV according to patient size. COMPARISON: None. FINDINGS: Image quality: Diagnostic. Lower chest: Unremarkable. Liver: No solid mass. Hepatic fatty infiltration. Gallbladder: Gallbladder is normal. Biliary tree: No intrahepatic or extrahepatic dilation, accounting for age. Spleen: No splenomegaly. Pancreas: No pancreatic ductal dilation. Adrenals: No adrenal nodule. Kidneys and ureters: No hydronephrosis. No renal cystic lesion which requires follow up. No solid mas s. Stomach, bowel and peritoneum: No gastric or small bowel dilation. No abnormal wall thickening. Splen ic flexure colon diverticulum without evidence of diverticulitis. No pathologic free fluid. The appen katelynn is normal. Lymph nodes: No central or retroperitoneal adenopathy. Vessels: No infrarenal aortic aneurysm. Patent portal vein. PELVIS Reproductive organs: Unremarkable. Bladder: No abnormal wall thickening, accounting for underdistention. Pelvic lymph nodes: No pelvic adenopathy by size criteria. Bones: No aggressive osseous abnormality. Other: No significant ventral or inguinal hernia. IMPRESSION: No acute disease process. Reviewed by: Ruby Lauren MD, PhD on 07/31/2023 10:14 AM PDT Approved by: Ruby Lauren MD, PhD on 07/31/2023 10:14 AM PDT Station ID: [id number]
[2023-07-31 11:29] VITALS: BP 110/69; O2SAT 99
== END 2023-07-31 11:23 | disposition home or self-care (01) ==
LOC: ED 08:05
DX: K62.5 Hemorrhage of anus and rectum (principal); R10.9 Unspecified abdominal pain; E55.9 Vitamin D deficiency, unspecified; R53.83 Other fatigue; D50.9 Iron deficiency anemia, unspecified; Z32.02 Encounter for pregnancy test, result negative; Z87.891 Personal history of nicotine dependence
CPT/HCPCS: 36415; 74177; 80053; 81003; 81025; 82306; 82607; 83540; 83690; 83735; 84100; 84443; 84466; 85025; 99284; Q9967; 81001; 87086

== ENCOUNTER 2023-09-24 17:31 | Emergency (ER) | payer OTHER ==
[2023-09-24 17:47] VITALS: BP 120/83; O2SAT 99
== END 2023-09-24 19:06 | disposition left against medical advice (07) ==
LOC: ED 17:31
DX: Z53.21 Procedure and treatment not carried out due to patient leaving prior to being seen by health care provider (principal)